=== PATIENT | female | born 1945 | race Caucasian/White ===

== ENCOUNTER 2025-07-06 22:14 | Inpatient (IN) | payer MEDICARE, OTHER, SELFPAY ==
[2025-07-06 19:41] VITALS: BP 167/93; BMI 24.1
[2025-07-06] MEDS: MORPHINE SULFATE 4 MG IV (19:57)
--- NOTE | 2025-07-06 20:00 | EDRN ---
Patient was placed on bed carroll to urinate, was able to tolerate with minimal pain.
--- NOTE | 2025-07-06 20:07 | ED.MUSCINJ ---
HPI-Injury
General
Chief Complaint: Fall
Source: patient and ambulance crew
Exam Limitations: none
Time Seen by Provider: 07/06/25 19:40
Nursing documentation reviewed up to this point in time: agreed with
History of Present Illness-Injury
Is this injury a work related problem?: No
Is pt an associate of [facility]?: No
Initial Injury comments:
80-year-old female slip and fall injuring her right hip and right upper thigh, occurred just prior to arrival came by EMS no blood thinners no head strike no neck pain she was walking slipped into a chair fell onto her right hip
Previously had her right knee replaced by Dr. Wang at the outpatient center
Past History
Past History
ED Past Surgical History: Orthopedic
Social History
Tobacco: Non-smoker
Alcohol: None
Drug: None
Personal:
Living: with family
Employment: Retired
Review of Systems
Review of Systems
All Other Systems: Not applicable
Constitutional: Denies fever or fatigue
Respiratory: Reports no symptoms
Cardiac: Reports no symptoms
ABD/GI: Reports no symptoms
Musculoskeletal: Reports joint pain; Denies neck pain or back pain
Phy Exam
Physical Exam
Physical Exam:
Physical Exam
General: no apparent distress, not acutely ill
Neck: No overt signs of head or neck trauma no posterior neck
Heart: s1/s2 regular rate and rhythm, no murmur. equal radial pulses.
Lungs: no acute respiratory distress. clear bilaterally
Abdomen: Nontender
Neuro: alert and oriented. no focal neurological deficits
Skin: no rash
Psychiatric: well kept. interactive and cooperative
Extremities:
Injury Course
Orders/Labs/Results
Orders:
Orders
07/06/25 19:50
CR Pelvis - 1 Or 2 Views Urgent
Reason For Exam: fall
Femur, Right 2 View [CR Femur - Right Min 2 Vw] Urgent
Comment:
Reason For Exam: fall
07/06/25 19:54
Morphine Sulfate 4 mg IV NOW STA
07/06/25 20:46
Electrocardiogram (*1) Urgent
Reason for Study: Other
Other Reason for Exam: trauma
Cardiac Monitoring- Treatment ONCE
EKG- Treatment ONCE
07/06/25 20:47
ORTHOPEDIC CONSULT Routine
Consulting Provider: Logan Mukherjee
Was physician already notified: Yes
07/06/25 20:48
Lower Ext Right wo Contrast CT [CT Lower Ext W/o Iv Cont Rt] Urgent
Comment:
Reason For Exam: hip pain, ortho request
07/06/25 21:16
Complete Blood Count/With Diff Urgent
Comprehensive Metabolic Panel Urgent
MDM/Problems Addressed
Differential Diagnosis Includes:
Hip fracture pelvic fracture femur fracture contusion strain
MDM/Problems Addressed:
Hip pain
*Radiology
Radiology exam reviewed: preliminary read by ED provider
*Pulse Oximetry
SaO2: 96
Oxygen Mode of Delivery: Room air
Patient hypoxic: no
*EKG
Interpreted by ED Provider?: Yes
Interpretation: normal
Comparison EKG: no comparison EKG present
Heart Rate: 78
Rate: normal
Rhythm: sinus
Ischemia: no ischemia
*Chain Puller Interpretation
Rate: Chain Puller- N/A
*Critical Care Note
Total Time (30-74mins, 75-104mins- exclusive of procedures): Not Applicable
Update Note
Update Note:
Update x-ray noted reviewed with orthopedics and radiology impacted femoral neck fracture which fits clinically, patient updated orthopedics requested CT scan to help with surgical planning,
ED Attending Note
-
Portions of this chart may have been created with voice recognition software.� Occasional wrong word or��sound alike� substitutions may have occurred due to the inherent limitations of voice recognition software.
Discharge Plan
Departure
Prescriptions:
No Action
Unobtainable
0
Referrals:
UNKNOWN - PT DOES,NOT KNOW [Family Provider]
Interventions
Interventions:
*Risk Screen - Suicide Last Done: 07/06/25 19:41
*General Assessment Last Done: 07/06/25 19:41
*Neglect/Abuse Screening Last Done: 07/06/25 19:41
*ED COVID-19 Vaccine History Last Done: 07/06/25 19:41
ED-Musculoskeletal Assessment Last Done: 07/06/25 20:24
ED- Neurological Assessment Last Done: 07/06/25 20:24
ED-Skin Assessment Last Done: 07/06/25 20:24
Discharge Date and Time
Print Language: SOUTH SUDANESE
[2025-07-06 21:00] VITALS: BP 153/78
[2025-07-06 21:27] LABS: Hematocrit 39.7 % (37.0-47.0); Hemoglobin 14.3 g/dL (12.0-16.0); Mean Corp Hgb Conc. 36.0 g/dL (33.0-37.0); Mean Corpuscular Volume 89.6 fL (81.0-99.0); Nucleated Red Blood Cells % 0 %; Platelet Count 255 10^3/uL (130-400); Red Cell Dist. Width 12.8 % (11.5-14.5)
--- NOTE | 2025-07-06 21:50 | HPS.HSE ---
Family Physician
-
Family Physician: NOT KNOW UNKNOWN - PT DOES
Chief Complaint
-
Fall
History of Present Illness
This is a 80-year-old female with past medical history significant for hypertension, hyperlipidemia, prior right total knee arthroplasty who presents to the emergency department following a mechanical fall at home.
Patient was visiting son and just finished dinner. She was cleaning the table when footwear got stuck underneath 1 of which she has. She tried to move she tripped and fell landing on her right side. There was no loss of consciousness. She had
immediate pain and difficulty with ambulation after the fall. She denies any numbness or tingling. She denies any focal weaknesses otherwise.
On arrival in the emergency department she was afebrile, blood pressure was 167/90 with a pulse rate of 99 and she was satting 95% on room air.
ECG shows sinus tachycardia at a rate of 103 with a left anterior fascicular block. No priors for comparison. CBC was completely unremarkable. Electrolytes notable for a sodium of 129 otherwise unremarkable. BUN and creatinine were normal.
X-rays and CT scan shows a fracture through the neck of the right femoral with slight impaction but no significant displacement on CT scan. No hip joint dislocation. The bony pelvis is intact. The x-rays revealed normal right total knee
arthroplasty.
Medical History
Past Medical History
Past Medical History: Reports HTN and Hypercholesterolemia
Past Surgical History: Reports Orthopedic (Right total knee arthroplasty) and Other
Social History
Tobacco: Non-smoker
Alcohol: None
Drug: None
Family History
Family History: Not pertinent
Allergies / Home Medications
Allergies reflects when Allergies were last updated in [employer].
Home Medications with original date entered in [employer]
Allergy/Medication List:
Allergies
Allergy/AdvReac Type Severity Reaction Status Date / Time
azithromycin Allergy Mild Vomiting Verified 07/06/25 19:49
Home Medications
amlodipine 2.5 mg tablet 2.5 mg PO DAILY 07/06/25
simvastatin 20 mg tablet 20 mg PO HS 07/06/25
valsartan 160 mg-hydrochlorothiazide 25 mg tablet 1 tab PO DAILY 07/06/25
Review of Systems
-
Constitutional: Reports No Symptoms
EENT: Reports No Symptoms
Respiratory: Reports No Symptoms
Cardiac: Reports No Symptoms
Abdomen/GI: Reports No Symptoms
: Reports No Symptoms
Musculoskeletal: Reports Joint Pain
Skin: Reports No Symptoms
Neurological: Reports No Symptoms
Endocrine: Reports No Symptoms
Hematologic/Lymphatic: Reports No Symptoms
Psych: Reports No Symptoms
Physical Exam
Vital Signs
Vital Signs
Temp Pulse Resp BP Pulse Ox
98.0 F 99 16 167/93 93
07/06/25 19:41 07/06/25 19:41 07/06/25 19:41 07/06/25 19:41 07/06/25 20:15
Physical Exam
General: Well Developed, Well Nourished and No Apparent Distress
HEENT: NormoCephalic, Moist mucous membranes and Atraumatic
Respiratory: Clear
Cardiac: S1/S2 and Regular Rhythm; No Murmur or Rub
GI: Soft, Non Tender, Non Distended and Normal Bowel Sounds; No Organomegaly
Rectal: Deferred by Provider
Musculoskeletal: No Clubbing, No Cyanosis and No Edema
Skin: No Rash
Neuro: Nonfocal/grossly intact
Hematologic/Lymphatic: No Lymphadenopathy
Psych: Calm
Laboratory Results
-
07/06/25 21:16
07/06/25 21:16
Laboratory Results
Total Bilirubin 0.6 mg/dl (0.2-1.3) 07/06/25 21:16
AST 35 U/L (14-36) 07/06/25 21:16
ALT 32 U/L (0-35) 07/06/25 21:16
Alkaline Phosphatase 101 U/L (38-126) 07/06/25 21:16
07/06/25 21:16
Data Reviewed
-
Diagnostic Radiology: Report Reviewed by me
CT Scan: Report Reviewed by me
Medical Tests (Nuc Med, Echo, EKG etc): Image Personally Visualized and interpreted
Lab Data: Labs Reviewed by me
Old Records: Reviewed
Impression/Plan
-
IMPRESSION:
80-year-old with history of hypertension, hyperlipidemia presenting with a mechanical fall and found to have right femoral neck nondisplaced fracture with slight impaction. Incidental finding of a sodium of 129. It looks like this may be chronic
as a prior sodium from over 10 years ago was 131. No recent evidence of GI or urinalysis or signs of dehydration. Patient is on a thiazide diuretic for blood pressure control.
PLAN:
Fracture
- Admit to MedSurg
- N.p.o. after midnight
- Gentle hydration with D5 normal saline for now
- Pain control
- No thinners, DVT prophylaxis with SCDs, Constantinos after procedure
- Fracture order sets with monitoring for urinary retention
- PT OT consult
- Orthopedics consulted and aware
Hyponatremia -suspect this is chronic and possibly SIADH but also patient is on hydrochlorothiazide.
- Hold HCTZ for now, continue valsartan
Hypertension
- Continue losartan and amlodipine, continue simvastatin
DVT prophylaxis�SCDs for now
CODE STATUS�full code
[2025-07-06 21:52] LABS: ALT (SGPT) 32 U/L (0-35); AST (SGOT) 35 U/L (14-36); Albumin 4.6 g/dl (3.5-5.0); Alkaline Phosphatase 101 U/L (38-126); Blood Urea Nitrogen 16 mg/dl (7-17); Calcium 10.5 mg/dl (8.4-10.2); Carbon Dioxide 21 mmol/L (22-30); Chloride 97 mmol/L (98-107); Estimated Creatinine Clearance 64 ml/min; Glucose 118 mg/dl (70-99); Potassium 3.7 mmol/L (3.5-5.1); Sodium 129 mmol/L (135-145); Total Protein 7.2 g/dl (6.3-8.2); eGFR > 60.00
[2025-07-06 22:27] VITALS: BP 157/85
--- NOTE | 2025-07-06 22:30 | EDRN ---
Patient placed on bed carroll to urinate and pulled up in bed.
[2025-07-06 23:07] VITALS: BP 144/77
[2025-07-06] MEDS: D5/0.9% SODIUM CHLORIDE 1000 IV (23:17)
[2025-07-06] MEDS: TYLENOL 650 MG PO (23:28)
[2025-07-06] MEDS: SENOKOT 17.2 MG PO (23:29)
[2025-07-06] MEDS: ROXICODONE 5 MG PO (23:30)
[2025-07-06] MEDS: COLACE 100 MG PO (23:31)
[2025-07-06] MEDS: MORPHINE SULFATE 2 MG IV (23:31)
[2025-07-06 23:35] VITALS: BMI 23.3
[2025-07-07] VITALS (12 sets, daily range): BP systolic 125–171; BP diastolic 77–88
[2025-07-07] MEDS: TYLENOL PO ×2 (03:33→18:28)
[2025-07-07] MEDS: MORPHINE SULFATE 2 MG IV ×3 (04:20→14:11)
[2025-07-07 06:30] LABS: Hematocrit 37.0 % (37.0-47.0); Hemoglobin 13.0 g/dL (12.0-16.0); Mean Corp Hgb Conc. 35.1 g/dL (33.0-37.0); Mean Corpuscular Volume 89.4 fL (81.0-99.0); Platelet Count 230 10^3/uL (130-400); Red Cell Dist. Width 12.9 % (11.5-14.5)
[2025-07-07 06:41] LABS: INR 1.06; PT 14.1 Sec (11.4-14.6)
[2025-07-07 06:49] LABS: Blood Urea Nitrogen 16 mg/dl (7-17); Calcium 9.7 mg/dl (8.4-10.2); Carbon Dioxide 27 mmol/L (22-30); Chloride 93 mmol/L (98-107); Estimated Creatinine Clearance 64 ml/min; Glucose 143 mg/dl (70-99); Potassium 3.7 mmol/L (3.5-5.1); Sodium 127 mmol/L (135-145); eGFR > 60.00
--- NOTE | 2025-07-07 07:52 | W.PN.HOSP.TC ---
Today's Communication/Plan
-
NPO for ORIF as per Orthopedic
Low risk for complication surgical intervention, risk is not prohibitive
Blood pressure Control
Pain control
Assessment / Plan
Assessment / Plan
Physical Exam
General: No acute distress, appears relatively comfortable at this time
HEENT: NormoCephalic, Moist mucous membranes and Atraumatic
Respiratory: Clear
Cardiac: S1/S2 and Regular Rhythm; No Murmur or Rub
GI: Soft, Non Tender, Non Distended and Normal Bowel Sounds; No Organomegaly
Musculoskeletal: No Clubbing, No Cyanosis, RLE thigh swelling, R foot externally rotated, b/l LE lengths appear symmetrical
Neuro: AOx3 conversant coherent
Psych: Calm
80F HTN, HLD here following mechanical fall found to have right femoral neck nondisplaced fracture with slight impaction. Patient also hyponatremic with thiazide diuretic for blood pressure control. Reports being told she has low sodium before, a
year ago, was told to drink less water.
PLAN:
Fracture
- Orthopedic eval appreciated N.p.o. for ORIF today
- revised cardiac pre-op risk assessment notes relatively low risk of complications, risk not prohibitive.
- Gentle hydration with D5/normal saline for now
- Pain control
- No thinners, DVT prophylaxis with SCDs for now pending operation
- Fracture order sets with monitoring for urinary retention
- PT OT consult
Hyponatremia -suspect this is chronic and possibly SIADH but also patient is on hydrochlorothiazide.
- Hold HCTZ for now, continue valsartan
Hypertension
- Continue losartan and amlodipine, continue simvastatin
- Hydralazine prn SBP>160 or DBP >100
-monitor on Tele
DVT prophylaxis�SCDs for now
CODE STATUS�full code
Discussed with patient who reported comfortable updating her son on her own.
I spent a total of 40 minutes with the patient or on the floor. More than 50% of this time involved counseling and coordination of care.
Anticipated Discharge: 24 - 48 hours
Subjective/Interval History
-
Date of Service: July 07, 2025
Seen and examined at bedside in no acute distress resting comfortably in bed. Reports persistent right hip lower ext pain.
Objective Data
-
Labs:
Laboratory Results
07/06/25 07/07/25
21:16 05:52
WBC 6.0 8.2
Hgb 14.3 13.0
Hct 39.7 37.0
Plt Count 255 230
PT 14.1
INR 1.06
Sodium 129 L 127 L
Potassium 3.7 3.7
Chloride 97 L 93 L
Carbon Dioxide 21 L 27
BUN 16 16
Creatinine 0.6 0.4 L
Glucose 118 H 143 H
Calcium 10.5 H 9.7
Total Bilirubin 0.6
AST 35
ALT 32
Alkaline Phosphatase 101
Vital Signs:
Vital Signs
Temp Pulse Resp BP Pulse Ox
98.5 F 85 16 149/82 97
07/07/25 07:30 07/07/25 07:30 07/07/25 07:30 07/07/25 07:30 07/07/25 07:30
I&O
07/06/25 07/07/25 07/08/25
06:59 06:59 06:59
Intake Total 840 / 840 480 / 480
Output Total 400 / 400
Balance 840 / 840 80 / 80
--- NOTE | 2025-07-07 08:25 | CON.ORTHO ---
Consultation
-
Date/Time Consultation Requested: Jul 17/2047
Date/Time Consultation Performed: Jul 17/0755
Requesting Provider: Vincent
Performing Provider: Pinky Mukherjee
Reason for Consultation: Right hip fracture
Consultation - Orthopedics
History
History of Present Illness:
80-year-old female with a PMH of HTN and Hyperlipds presenting to the emergency department after a trip and fall at her son's house yesterday. reportedly landed directly on her right hip and was unable to get to her feet to ambulate. She was
transported via EMS where plain radiographs confirmed a right hip fracture. Denies a head strike or LOC. Does not take blood thinners. denies any previous issues or injuries to the right hip prior to the fall. Known to our orthopedic practice for
a right knee replacement by Dr. Garcia in the past.
Past Medical History:
HTN
Hyperlipids
Past Surgical History:
Right TKA (Jose)
Social History:
Tobacco: Non-smoker
Alcohol: None
Drug: None
Personal:
Living: with family
Employment: Retired
Family History:
Non-contributory
ROS:
12 point negative except for those mentioned in the HPI
Allergies / Home Medications
Allergy/AdvReac Type Severity Reaction Status Date / Time
azithromycin Allergy Mild Vomiting Verified 07/06/25 19:49
�Medication �Instructions �Recorded
Vitamin D3 2,000 cap PO BID Supplement 07/06/25
amlodipine 2.5 mg tablet 2.5 mg PO DAILY Blood Pressure 07/06/25
simvastatin 20 mg tablet 20 mg PO HS High Cholesterol 07/06/25
valsartan 160 1 tab PO DAILY Blood Pressure 07/06/25
mg-hydrochlorothiazide 25 mg tablet
Vital Signs / Lab Results
Temp Pulse Resp BP Pulse Ox
98.5 F 85 16 149/82 97
07/07/25 07:30 07/07/25 07:30 07/07/25 07:30 07/07/25 07:30 07/07/25 07:30
07/07/25 05:52
07/07/25 05:52
Assessment / Plan
PE:
Afeb.Hgb 13.0. At bedrest. Right hip skin intact. RLE slightly short and ER. Generalized pain to palpation about the right hip. Deferred range of motion due to known fracture. + logroll RLE. Knee nontender. Calf soft nontender. DNVI RLE
Xrays: Nondisplaced, slightly impacted, RIGHT femoral neck fracture
Impression: DENIZ
Plan: At length bedside discussion with the patient yields her understanding to the nature of her right hip fracture. All nonoperative and operative management were discussed, including the RBAs of each form of treatment. After our discussion she
agreed to proceed with surgical correction. We discussed cannulated screw fixation versus hemiarthroplasty. We discussed her limits with weightbearing after a cannulated screw fixation, which she did not, preliminarily, appear interested in. We
have tentatively planned for lunchtime-mid afternoon, based on the OR and Drs. Mukherjee or Torsten' availability. Surgical and blood consent has been obtained and placed in the patient's chart. She is and will remain NPO. Discussed with attending
hospitalist, Dr. Chavze. T&S has been requested. Operative site has been marked as the RIGHT hip. we discussed the postoperative and rehab course, and will appreciate CM assistance with disposition. ABX/irrigation products OCTOR. Again, the plan is
later today for surgical correction of her RIGHT hip. Will follow.
[2025-07-07] MEDS: DIOVAN 160 MG PO (09:09)
[2025-07-07] MEDS: SENOKOT 17.2 MG PO ×2 (09:10→19:28)
[2025-07-07] MEDS: NORVASC 2.5 MG PO (09:10)
[2025-07-07] MEDS: COLACE 100 MG PO ×2 (09:10→19:28)
[2025-07-07] MEDS: TYLENOL 650 MG PO ×3 (09:10→19:28)
--- NOTE | 2025-07-07 10:03 | CM ---
Reviewed the chart notes and spoke with the patient at the bedside. Patient scheduled for surgery today to repair hip fx. Patient resides alone in a one story home with two steps to enter. The patient reports no DME/VN/SNF in the past. The
patient confirmed her pharmacy of choice [facility]. CM continues to be available to patient/family and is monitoring medical plan for needs at discharge.
Plan: Discharge plans will depend on the patient's progress. Briefly discussed possible need for SNF/rehab at discharge.
[2025-07-07] MEDS: MORPHINE SULFATE 1 MG IV (10:58)
[2025-07-07] MEDS: D5/0.9% SODIUM CHLORIDE 1000 IV (12:08)
--- NOTE | 2025-07-07 17:32 | W.IMMPOSTOP ---
Surgical Immed Post Op Note
-
Primary Surgeon: Yaz
Shuttle Spotter: Rojelio Buhcanan PA-C
Pre-op Diagnosis: Right hip femoral neck fracture
Post-op Diagnosis: Same
Procedure Performed: Right hip hemiarthroplasty
Anesthesia Type: Spinal
Specimen / Cultures: None
Estimated Blood Loss: 20cc
Complications: None
Operative Findings: Dictated
Plan:
- WBAT
- PT/ OT
- If there are not currently on blood thinners, ASA 325 for 30 days
[2025-07-07] MEDS: ROXICODONE 5 MG PO ×2 (18:15→20:51)
[2025-07-07] MEDS: NSS 1000 IV (18:47)
[2025-07-07] MEDS: ASPIRIN 325 MG PO (18:47)
--- NOTE | 2025-07-07 19:21 | PTCARENOTE ---
Addendum entered by Marianela Couch RN 07/07/25 19:31:
Pt tachy on monitor. Pt does not report any palpitations. Pt does report feeling anxious. Dr. Chavez notified. PRN xanax ordered. Care ongoing.
Original Note:
Pt arrived to [facility] s/p right hip bernadine. Right hip dressing with small sanguineous drainage. Abductor pillow between pt's legs. Pt with mild loss of sensation in legs. IVF infusing. Bed locked and in lowest position. Care ongoing.
[2025-07-07] MEDS: LIPITOR 10 MG PO (22:27)
[2025-07-07] MEDS: BACTROBAN 2% OINTMENT 1 APPLIC NASAL (22:28)
[2025-07-08] VITALS (8 sets, daily range): BP systolic 111–150; BP diastolic 59–91; PULSE 100–104; O2SAT 91
[2025-07-08] MEDS: ANCEF 5 IV ×2 (00:08→08:14)
[2025-07-08] MEDS: TYLENOL PO ×2 (00:09→03:51)
--- NOTE | 2025-07-08 06:34 | PTCARENOTE ---
Pt reporting during rounds @ 0600 that she can't bend her ankle. RN assessed pt and noted right ankle is in plantarflexion and unable to perform dorsiflexion. Pt neurovascular throughout shift have been WNL reporting mild tingling continues in her
RLE since returning from surgery. Pt able to bend her knee and push her foot as to push on a pedal. call circuit worker ortho notified and asked to order a PRAFO boot until ortho rounds this morning. SPD callled and boot ordered. STRAW HAT PRESSER notified of above findings.
[2025-07-08 06:43] LABS: Blood Urea Nitrogen 12 mg/dl (7-17); Calcium 9.3 mg/dl (8.4-10.2); Carbon Dioxide 25 mmol/L (22-30); Chloride 101 mmol/L (98-107); Estimated Creatinine Clearance 64 ml/min; Glucose 135 mg/dl (70-99); Magnesium 1.9 mg/dl (1.6-2.3); Potassium 3.9 mmol/L (3.5-5.1); Sodium 130 mmol/L (135-145); eGFR > 60.00
[2025-07-08 06:44] LABS: Hematocrit 32.9 % (37.0-47.0); Hemoglobin 11.6 g/dL (12.0-16.0); Mean Corp Hgb Conc. 35.3 g/dL (33.0-37.0); Mean Corpuscular Volume 88.2 fL (81.0-99.0); Platelet Count 179 10^3/uL (130-400); Red Cell Dist. Width 12.9 % (11.5-14.5)
[2025-07-08] MEDS: TYLENOL 650 MG PO ×5 (08:14→23:26)
[2025-07-08] MEDS: COLACE 100 MG PO ×2 (08:14→20:28)
[2025-07-08] MEDS: ASPIRIN 325 MG PO (08:14)
[2025-07-08] MEDS: SENOKOT 17.2 MG PO ×2 (08:14→20:28)
[2025-07-08] MEDS: BACTROBAN 2% OINTMENT 1 APPLIC NASAL ×2 (08:15→20:27)
--- NOTE | 2025-07-08 08:17 | W.PN.ORTHO ---
Today's Communication / Plan
-
80 yo F POD1 right hip hemiarthroplasty for femoral neck fracture under the direction of Dr. Mukherjee
--Unfortunately, patient has developed a foot drop post-operatively. We will keep an eye on this in the days to come. An orthosis has been ordered.
--Once patient has orthosis, she may be weight bearing as tolerated with assistive device. THPs x6-8 weeks. We appreciate the assistance of PT/OT.
--Recommend ASA 325 mg daily x4 weeks for DVT ppx.
--Pain control prn. Ice and elevation for edema control.
--Hgb 11.6 this AM. Continue to monitor.
--Maintain surgical dressing until 7-10 days post-op. Staple removal at 2 weeks post-op.
--Case management consult for discharge planing.
--Orthopedics will continue to follow along.
Assessment
.
Dressing:
Clean, dry and intact.
Plan
.
Surgery / Date: R hip bernadine, 07/07, [facility]
DVT Prophylaxis: Aspirin
Activity:
Out of bed.
PT/OT
Subjective
.
.:
Ms. Esparza is POD1 following her right hip hemiarthroplasty performed by Dr. Mukherjee. She is resting comfortably in bed this morning. She does endorse aching pain about the hip. Unfortunately, she also appears to have developed a foot drop following
surgery. She endorses tingling in her foot, and difficulty dorsiflexing her foot.
Vital Signs and Labs
.
Vital Signs and Labs:
Lab Results
07/08/25 06:01
07/08/25 06:01
Temp Pulse Resp BP Pulse Ox
97.9 F 91 18 112/77 95
07/08/25 03:05 07/08/25 03:05 07/08/25 03:05 07/08/25 03:05 07/08/25 03:05
PT 14.1 Sec (11.4-14.6) 07/07/25 05:52
INR 1.06 07/07/25 05:52
Non-invasive Hgb result: 12.3
Physical Exam
-
Directed exam of the right lower extremity reveals surgical dressing clean, dry and intact. Expected post-operative edema about the right hip. Mild tenderness to palpation. Hip adn thigh soft and compressible. Calf soft and nontender. Patient able
to wiggle toes, but unable to actively dorsiflex ankle. Sensation intact to light touch apart from L5 over the dorsum of the foot.
--- NOTE | 2025-07-08 08:54 | PN.CDI ---
CDI
- -
CDI:
Physician Documentation Request
Admit Date: 07/06/25 22:14
Dear Doctor Scott,
Please review the following and provide your response in the progress notes.
Clinical Indicators:
Laboratory Tests
07/06/25 07/07/25 07/08/25
21:16 05:52 06:01
Hgb 14.3 13.0 11.6 L
Based on the above and your clinical assessment, please clarify the likely condition/diagnosis evaluated, monitored and/or treated?
Acute blood loss anemia
Abnormal lab value, clinically insignificant
Other (please specify)
Use of terms such as suspected, likely, concern for, or probable (associated with a specific diagnosis that is being evaluated, monitored, or treated as if it exists) are acceptable and can be coded in the inpatient setting, when documented at the
time of discharge.
Thank you,
Varsha Pat RN BSN CDS
CDI Specialist
Please contact via tiger text
Please use your independent medical judgment in providing your response.
--- NOTE | 2025-07-08 08:58 | PN.CDI ---
CDI
- -
CDI:
Physician Documentation Request
Admit Date: 07/06/25 22:14
Dear Doctor Scott,
Please review the following and provide your response in the progress notes.
Clinical Indicators:
H+P, 07/06
#...cleaning the table when footwear got stuck underneath 1 of which she has.
#...She tried to move she tripped and fell landing on her right side.
PN, 07/07
#...mechanical fall found to have right femoral neck nondisplaced fracture
#...with slight impaction.
Please clarify the following regarding the etiology of the right femoral neck fracture:
Multifactorial, low level trauma and age related osteoporosis
Traumatic fracture only
Other(please specify)
Type
Age-related
Drug induced (specify drug)
Idiopathic
Osteoporosis of disuse
Due to post surgical malabsorption
Post traumatic
Use of terms such as suspected, likely, concern for, or probable (associated with a specific diagnosis that is being evaluated, monitored, or treated as if it exists) are acceptable and can be coded in the inpatient setting, when documented at the
time of discharge.
Thank you,
Varsha Pat RN BSN CCDS
CDI Specialist
Please contact via tiger text
Please use your independent medical judgment in providing your response.
[2025-07-08] MEDS: DIOVAN 160 MG PO (09:01)
[2025-07-08] MEDS: NORVASC 2.5 MG PO (09:01)
[2025-07-08] MEDS: ROXICODONE 5 MG PO ×3 (09:04→19:06)
--- NOTE | 2025-07-08 11:07 | W.PN.HOSP.TC ---
Addendum entered and electronically signed by Rosa Isela Chavez MD 07/09/25 07:47:
Fracture probably multifactorial d/t trauma and age related osteoporosis
Original Note:
Today's Communication/Plan
-
pain control
PT/OT
Post-op care as per orthopedic
Monitor H&H
discharge planning
Assessment / Plan
Assessment / Plan
Physical Exam
General: No acute distress, appears relatively comfortable at this time
HEENT: NormoCephalic, Moist mucous membranes and Atraumatic
Respiratory: Clear
Cardiac: S1/S2 and Regular Rhythm; No Murmur or Rub
GI: Soft, Non Tender, Non Distended and Normal Bowel Sounds; No Organomegaly
Musculoskeletal: No Clubbing, No Cyanosis, Right foot orthosis in place
Neuro: AOx3 conversant coherent
Psych: Calm
80F HTN, HLD here following mechanical fall found to have right femoral neck nondisplaced fracture with slight impaction. Patient also hyponatremic with thiazide diuretic for blood pressure control. Reports being told she has low sodium before, a
year ago, was told to drink less water.
PLAN:
Right Femur Fracture
- Orthopedic eval appreciated right hip hemiarthroplasty performed 07/07/25 unfortunately developed subsequent right foot drop
- Pain control
- WBAT w/ orthosis right foot and assist device
-THPs x 6-8wks
- ASA 325 mg daily DVT ppx 4 wks
- surgical dressing 7-10 days post-op, staple removal 2 wks post op
- PT OT consult appreciated Acute vs SNF
Hyponatremia -suspect this is chronic and possibly SIADH but also patient is on hydrochlorothiazide.
- Hold HCTZ for now, continue valsartan
-Na since improved
-cont to monitor
Hypertension
- Continue losartan and amlodipine, continue simvastatin
- Hydralazine prn SBP>160 or DBP >100
-monitor on Tele
Post-op mild acute blood loss anemia
-Hgb trended down from 13.6 to 11.6 post-procedure
-cont to monitor for now
Sinus tachycardia
-possibly d/t pain vs anxiety
-denies chest pain
-monitor for now on Tele
DVT prophylaxis�SCDs Aspirin
CODE STATUS�full code
I spent a total of 40 minutes with the patient or on the floor. More than 50% of this time involved counseling and coordination of care.
Anticipated Discharge: 24 - 48 hours
Subjective/Interval History
-
Date of Service: July 08, 2025
No acute distress, appears comfortable at this time. Notes right foot drop, orthosis in place, able to wriggle toes. Pain controlled with current pain regimen.
Objective Data
-
Labs:
Laboratory Results
07/08/25
06:01
WBC 8.1
Hgb 11.6 L
Hct 32.9 L
Plt Count 179 D
Sodium 130 L
Potassium 3.9
Chloride 101
Carbon Dioxide 25
BUN 12
Creatinine 0.5 L
Glucose 135 H
Calcium 9.3
Vital Signs:
Vital Signs
Temp Pulse Resp BP Pulse Ox
98.7 F 108 18 150/91 99
07/08/25 08:00 07/08/25 09:01 07/08/25 08:00 07/08/25 09:01 07/08/25 08:00
I&O
07/07/25 07/08/25 07/09/25
06:59 06:59 06:59
Intake Total 840 / 840 1940 / 1940
Output Total 400 / 400
Balance 840 / 840 1540 / 1540
--- NOTE | 2025-07-08 11:37 | CM ---
Addendum entered by Ana Zaman RN 07/08/25 15:46:
Referrals sent via [facility].
Original Note:
Reviewed the chart notes and spoke with the patient at the bedside. Patient is POD1 right hip hemiarthroplasty for femoral neck fracture. PT/OT evaluations pending. Patient understands will most likely need SNF/rehab prior to transitioning home.
Referrals will be sent to patient's selected SNFs once PT/OT has seen. No precert required. CM continues to be available to patient/family and is monitoring medical plan for needs at discharge.
Plan: SNF/rehab once medically stable and bed secured. No precert required.
--- NOTE | 2025-07-08 12:24 | PTCARENOTE ---
Jonna juarez ordered for Right foot drop. Jonna unable to come today but will be here tomorrow. DOM Rodriguez, notified. Multipodus boot on pt until jonna juarez is here. Care ongoing.
[2025-07-08] MEDS: MILK OF MAGNESIA 30 ML PO (19:10)
[2025-07-08] MEDS: LIPITOR 10 MG PO (21:27)
[2025-07-09] VITALS (7 sets, daily range): BP systolic 107–130; BP diastolic 62–84; PULSE 93–101; O2SAT 95
--- NOTE | 2025-07-09 02:17 | DOWNTIME ---
There was a [employer] Downtime on 07/09/2025 from 0100 to 07/09/2025 at 0215. Downtime documentation of patient's care, including medication administrations, has been reconciled in the electronic record per guidelines. Refer to the
patient's paper chart under the miscellaneous tab to see printed paper medication records and downtime forms.
[2025-07-09] MEDS: TYLENOL 650 MG PO ×6 (03:52→23:17)
--- NOTE | 2025-07-09 07:22 | W.PN.UPDATE ---
Update Note
Progress Note Update
Ms. Esparza is POD2 following her right hip hemiarthroplasty. She is resting comfortably in bed this morning. She endorses increased pain after PT yesterday, but reports she is otherwise doing well overall. She was able to ambulate in her
multi-podus boot yesterday. Thankfully, it sounds as though her foot drop has resolved since I saw her on rounds yesterday.
Directed exam of the right lower extremity reveals surgical dressing clean, dry and intact. Expected post-operative edema about the right hip. Mild tenderness to palpation. Hip and thigh soft and compressible. Calf soft and nontender. Patient able
to wiggle toes, plantar and dorsiflex ankle. Sensation intact to light touch. NVID.
80 yo F POD2 right hip hemiarthroplasty for femoral neck fracture under the direction of Dr. Mukherjee
--It appears as though Rajwinder's foot drop has resolved since I saw her on rounds yesterday. She currently has the multi podus boot in place, but could trial ambulating without this under the direction of PT.
--Weight bearing as tolerated with assistive device. THPs x6-8 weeks. We appreciate the assistance of PT/OT.
--Recommend ASA 325 mg daily x4 weeks for DVT ppx.
--Pain control prn. Ice and elevation for edema control.
--Hgb pending this AM. Continue to monitor.
--Maintain surgical dressing until 7-10 days post-op. Staple removal at 2 weeks post-op.
--Case management consult for discharge planing.
--- NOTE | 2025-07-09 07:27 | W.PN.HOSP.TC ---
Today's Communication/Plan
-
cont pain control
PT/OT
trend H&H
B12 supplementation
possible discharge SNF rehab tomorrow if remains stable
Assessment / Plan
Assessment / Plan
Physical Exam
General: No acute distress, appears relatively comfortable at this time
HEENT: NormoCephalic, Moist mucous membranes and Atraumatic
Respiratory: Clear
Cardiac: S1/S2 and Regular Rhythm; No Murmur or Rub
GI: Soft, Non Tender, Non Distended and Normal Bowel Sounds; No Organomegaly
Musculoskeletal: No Clubbing, No Cyanosis, Right foot orthosis in place
Neuro: AOx3 conversant coherent
Psych: Calm
80F HTN, HLD here following mechanical fall found to have right femoral neck nondisplaced fracture with slight impaction. Patient also hyponatremic with thiazide diuretic for blood pressure control. Reports being told she has low sodium before, a
year ago, was told to drink less water.
PLAN:
Right Femur Fracture
Fracture probably multifactorial d/t trauma and age related osteoporosis
- Orthopedic eval appreciated right hip hemiarthroplasty performed 07/07/25 unfortunately developed subsequent right foot drop
- Pain control
- WBAT w/ orthosis right foot and assist device
-THPs x 6-8wks
- ASA 325 mg daily DVT ppx 4 wks
- surgical dressing 7-10 days post-op, staple removal 2 wks post op
- PT OT consult appreciated Acute vs SNF
-Right rib x-rays appreciated no fracture
Hyponatremia -suspect this is chronic and possibly SIADH but also patient is on hydrochlorothiazide.
- Hold HCTZ for now, continue valsartan
-Na since improved
-cont to monitor
Hypertension
- Continue losartan and amlodipine, continue simvastatin
- Hydralazine prn SBP>160 or DBP >100
-monitor on Tele
Post-op mild acute blood loss anemia
Anemia of Chronic Disease
Low normal B12 level
-Hgb trended down from 13.6 to 11.6 post-procedure
-cont to monitor for now
-B12 supplementation
-Iron supplementation not indicated, high ferritin level
Sinus tachycardia
-possibly d/t pain vs anxiety
-denies chest pain
-monitor for now on Tele
DVT prophylaxis�SCDs Aspirin
CODE STATUS�full code
I spent a total of 40 minutes with the patient or on the floor. More than 50% of this time involved counseling and coordination of care.
Anticipated Discharge: Within 24 hours
Subjective/Interval History
-
Date of Service: July 09, 2025
No acute distress, sitting up comfortably in bed, notes right foot drop resolved.
Objective Data
-
Labs:
Laboratory Results
07/09/25
06:59
WBC Pending
Hgb Pending
Hct Pending
Plt Count Pending
Sodium Pending
Potassium Pending
Chloride Pending
Carbon Dioxide Pending
BUN Pending
Creatinine Pending
Glucose Pending
Calcium Pending
Vital Signs:
Vital Signs
Temp Pulse Resp BP Pulse Ox
97.4 F 81 16 107/62 98
07/09/25 03:12 07/09/25 03:12 07/09/25 03:12 07/09/25 03:12 07/09/25 03:12
I&O
07/08/25 07/09/25 07/10/25
06:59 06:59 06:59
Intake Total 1939 / 1939 880 / 880
Output Total 400 / 400
Balance 1540 / 1540 880 / 880
[2025-07-09 08:02] LABS: Hematocrit 31.5 % (37.0-47.0); Hemoglobin 10.9 g/dL (12.0-16.0); Mean Corp Hgb Conc. 34.6 g/dL (33.0-37.0); Mean Corpuscular Volume 90.3 fL (81.0-99.0); Platelet Count 157 10^3/uL (130-400); Red Cell Dist. Width 13.4 % (11.5-14.5)
[2025-07-09 08:37] LABS: Blood Urea Nitrogen 19 mg/dl (7-17); Calcium 9.0 mg/dl (8.4-10.2); Carbon Dioxide 31 mmol/L (22-30); Chloride 99 mmol/L (98-107); Estimated Creatinine Clearance 64 ml/min; Glucose 97 mg/dl (70-99); Magnesium 2.2 mg/dl (1.6-2.3); Potassium 3.6 mmol/L (3.5-5.1); Sodium 131 mmol/L (135-145); eGFR > 60.00
[2025-07-09] MEDS: ASPIRIN 325 MG PO (09:17)
[2025-07-09] MEDS: DIOVAN 160 MG PO (09:17)
[2025-07-09] MEDS: NORVASC 2.5 MG PO (09:18)
[2025-07-09] MEDS: SENOKOT 17.2 MG PO ×2 (09:18→20:39)
[2025-07-09] MEDS: COLACE 100 MG PO ×2 (09:18→20:39)
[2025-07-09] MEDS: ROXICODONE 10 MG PO (09:24)
[2025-07-09 10:13] LABS: Total Iron Binding Capacity 238 ug/dl (265-497)
[2025-07-09 10:20] LABS: Iron < 20 ug/dl (37-170)
[2025-07-09 10:39] LABS: Ferritin 208.0 ng/ml (11.1-264.0)
[2025-07-09 10:54] LABS: Vitamin B12 240 pg/ml (239-931)
[2025-07-09] MEDS: VITAMIN B-12 1000 MCG PO (13:37)
[2025-07-09 13:38] LABS: Folate 5.1 ng/ml (2.76-20)
--- NOTE | 2025-07-09 15:10 | CM ---
CM following re: discharge planning.
Reviewed pt's chart, met with pt.
Pt is POD#2 right hip hemiarthroplasty for femoral neck fracture. Continue supportive care.
PT and OT have been recommending SNF level of care
Pt is informed that [facility] SNF and [facility] offered a bed and pt stated her preferred choice is [facility]. Pt stated she feels she will be ready for discharge tomorrow.
CM texted [facility] interior design director regarding accepting the pt for admission tomorrow. Awaiting for confirmation.
D/C plan: [facility]. Awaiting for confirmation.
[2025-07-09] MEDS: ROXICODONE 5 MG PO ×2 (16:06→21:47)
[2025-07-09] MEDS: LIPITOR 10 MG PO (20:39)
[2025-07-10 03:12] VITALS: BP 111/69
[2025-07-10] MEDS: TYLENOL PO (04:14)
[2025-07-10] MEDS: ROXICODONE 5 MG PO (06:43)
--- NOTE | 2025-07-10 07:13 | W.PN.HOSP.TC ---
Today's Communication/Plan
-
discharge
Assessment / Plan
Assessment / Plan
Physical Exam
General: No acute distress, appears relatively comfortable at this time
HEENT: NormoCephalic, Moist mucous membranes and Atraumatic
Respiratory: Clear
Cardiac: S1/S2 and Regular Rhythm; No Murmur or Rub
GI: Soft, Non Tender, Non Distended and Normal Bowel Sounds; No Organomegaly
Musculoskeletal: No Clubbing, No Cyanosis, Right foot orthosis in place
Neuro: AOx3 conversant coherent
Psych: Calm
80F HTN, HLD here following mechanical fall found to have right femoral neck nondisplaced fracture with slight impaction. Patient also hyponatremic with thiazide diuretic for blood pressure control. Reports being told she has low sodium before, a
year ago, was told to drink less water.
PLAN:
Right Femur Fracture
Fracture probably multifactorial d/t trauma and age related osteoporosis
- Orthopedic eval appreciated right hip hemiarthroplasty performed 07/07/25 unfortunately developed subsequent right foot drop, foot drop however since resolved
- Pain control
- WBAT w/ assist device
-THPs x 6-8wks
- ASA 325 mg daily DVT ppx 4 wks
- surgical dressing 7-10 days post-op, staple removal 2 wks post op
- PT OT consult appreciated SNF rehab
-Right rib x-rays appreciated no fracture
Hyponatremia -suspect this is chronic and possibly SIADH but also patient is on hydrochlorothiazide.
- dc HCTZ (BP well controlled without)
-Na since improved
Hypertension
- Continue Valsartan and amlodipine, continue simvastatin
- Hydralazine prn SBP>160 or DBP >100
-monitor on Tele
Post-op mild acute blood loss anemia
Anemia of Chronic Disease
Low normal B12 level
-Hgb trended down from 13.6 to 11.6 post-procedure
-B12 supplementation
-Iron supplementation not indicated, high ferritin level
-H&H stable
Sinus tachycardia
-possibly d/t pain vs anxiety
-denies chest pain
-HR since improved
DVT prophylaxis�SCDs Aspirin
CODE STATUS�full code
Total Time Preparing Discharge __40 minutes including examination of the patient, summary of the hospital stay, instructions for continuing care to all relevant caregivers; and preparation of discharge records, prescriptions, and referral
forms if necessary.
Anticipated Discharge: Today
Subjective/Interval History
-
Date of Service: July 10, 2025
Seen and examined at bedside in no acute distress resting comfortably in bed. Pain well controlled with current pain regimen. Looking forward to rehab.
Objective Data
-
Labs:
Laboratory Results
07/10/25
06:34
WBC Pending
Hgb Pending
Hct Pending
Plt Count Pending
Sodium Pending
Potassium Pending
Chloride Pending
Carbon Dioxide Pending
BUN Pending
Creatinine Pending
Glucose Pending
Calcium Pending
Vital Signs:
Vital Signs
Temp Pulse Resp BP Pulse Ox
97 F 83 16 111/69 99
07/10/25 03:12 07/10/25 03:12 07/10/25 03:12 07/10/25 03:12 07/10/25 03:12
I&O
07/09/25 07/10/25 07/11/25
06:59 06:59 06:59
Intake Total 880 / 880 960 / 960
Balance 880 / 880 960 / 960
[2025-07-10 07:35] LABS: Hematocrit 30.5 % (37.0-47.0); Hemoglobin 10.6 g/dL (12.0-16.0); Mean Corp Hgb Conc. 34.8 g/dL (33.0-37.0); Mean Corpuscular Volume 89.7 fL (81.0-99.0); Platelet Count 175 10^3/uL (130-400); Red Cell Dist. Width 13.3 % (11.5-14.5)
[2025-07-10 07:37] LABS: Blood Urea Nitrogen 19 mg/dl (7-17); Calcium 9.5 mg/dl (8.4-10.2); Carbon Dioxide 29 mmol/L (22-30); Chloride 102 mmol/L (98-107); Estimated Creatinine Clearance 64 ml/min; Glucose 101 mg/dl (70-99); Magnesium 2.0 mg/dl (1.6-2.3); Potassium 4.2 mmol/L (3.5-5.1); Sodium 132 mmol/L (135-145); eGFR > 60.00
[2025-07-10 08:20] VITALS: BP 137/76
[2025-07-10] MEDS: SENOKOT 17.2 MG PO (08:58)
[2025-07-10] MEDS: ASPIRIN 325 MG PO (08:58)
[2025-07-10] MEDS: TYLENOL 650 MG PO ×3 (08:58→15:00)
[2025-07-10] MEDS: COLACE 100 MG PO (08:58)
[2025-07-10] MEDS: VITAMIN B-12 1000 MCG PO (08:59)
[2025-07-10] MEDS: DIOVAN 160 MG PO (08:59)
[2025-07-10] MEDS: NORVASC 2.5 MG PO (08:59)
[2025-07-10 10:16] VITALS: BP 121/78
--- NOTE | 2025-07-10 10:42 | CM ---
CM following re: discharge planning.
Reviewed pt's chart, met with pt.
According to pt probably will be discharged this afternoon. Pt is aware, expressed her agreement and pt requested [facility].
IMM reviewed, placed on chart, pt has a copy.
CM spoke to [facility] director of real estate and she confirmed that pt is accepted for admission today. COVID test requested. is aware. Requested copies of pt's insurance cards sent to [facility] director of real estate.
to arrange ambulance transport BLS. PMNC completed and left with
[facility] nursing report: [phone]
Discharge instructions with COVID test result fax to: [phone]
D/C plan: [facility].
[2025-07-10 10:53] VITALS: BP 127/80
[2025-07-10] MEDS: ZOFRAN 4 MG IV (10:59)
[2025-07-10 12:27] LABS: COVID-19 Antigen Negative (Negative)
[2025-07-10 12:55] LABS: Hematocrit 31.9 % (37.0-47.0); Hemoglobin 10.9 g/dL (12.0-16.0)
--- NOTE | 2025-07-10 13:58 | W.DCSUMMARY ---
Discharge Summary
Discharge Data
Date of Admission: 07/06/25
Date of Discharge: 07/10/25
-
Pending Results: No
Discharge Plan
-
Patient Disposition: Jail/SNF
Discharge Diagnosis/Procedures: Right Femur Fracture status post right hip hemiarthroplasty performed 07/07/25
Chronic Hyponatremia
Hypertension
Post-op mild acute blood loss anemia
Anemia of Chronic Disease
Low normal B12 level
Condition: Fair
Diet: Regular and Restrict fluids to 48 oz
Activity: With assistance, As tolerated and With Walker
Driving Restrictions: Not until seen by your Dr
Blood Work: Repeat CBC and BMP with primary care provider in 1 week of discharge.
Repeat Iron studies and B12 level with primary care provider in 1 month of discharge
Other Services: PT and OT
Activity Restrictions/Additional Instructions:
Follow up with primary care provider in 1 week of discharge and Orthopedic in 2 weeks of discharge.
Aspirin prescribed for DVT prophylaxis following recent orthopedic surgical procedure. Follow up with Orthopedic to determine when safe to discontinue. You were started on Aspirin DVT prophylaxis on 07/07/25
Tylenol and oxycodone prescribed as needed for pain.
Senokot-S prescribed for constipation prophylaxis while on opiate pain meds. Hold if diarrhea or off opiate pain meds.
Hydrochlorothiazide discontinued due to hyponatremia. Blood pressure stable without.
Vitamin B12 supplementation prescribed due to low levels.
Please take medications as prescribed/recommended and follow up with primary care provider and/or other healthcare provider involved in your care for refills and/or further adjustment to your medication regimen as necessary.
Referrals:
Logan Mukherjee MD [Active, Orthopedics] - in two weeks
UNKNOWN - PT DOES,NOT KNOW [Family Provider]
Prescriptions:
New
aspirin 325 mg Tablet
325 mg PO DAILY Qty: 24 0RF
oxycodone 5 mg Tablet
2.5 mg PO Q6HPRN PRN (Reason: moderate pain) Qty: 6 0RF
oxycodone 5 mg Tablet
5 mg PO QIDPRN PRN (Reason: severe pain) Qty: 12 0RF
valsartan 160 mg Tablet
160 mg PO DAILY Qty: 30 0RF
sennosides-docusate sodium [Senokot-S] 8.6-50 mg tablet
1 tab-cap PO BID Qty: 60 0RF
Rx Instructions:
Hold if diarrhea or off opiate pain medications
cyanocobalamin (vitamin B-12) [Vitamin B-12] 500 mcg Tablet
1,000 mcg PO DAILY Qty: 30 0RF
acetaminophen [Tylenol] 325 mg tablet
650 mg PO Q4H PRN (Reason: Pain) Qty: 180 0RF
Continued
amlodipine 2.5 mg tablet
2.5 mg PO DAILY
simvastatin 20 mg tablet
20 mg PO HS
Vitamin D3
2,000 cap PO BID
Discontinued
valsartan-hydrochlorothiazide 160-25 mg tablet
1 tab PO DAILY
Discharge Orders:
Discharge Patient (As Directed); Ordered 07/10/25
Ordered By: Rosa Isela Chavez
Discharge Date and Time
Print Language: DOMINICAN
[2025-07-10] MEDS: ROXICODONE 2.5 MG PO (15:00)
[2025-07-10 15:08] VITALS: BP 131/69
== END 2025-07-10 16:35 | DRG 522 ==
LOC: 2 SOUTH 22:14
PROVIDERS: ADMITTING PHYSICIAN Internal Medicine; ATTENDING PHYSICIAN Internal Medicine; CONSULT PHYSICIAN Orthopaedic Surgery; EMERGENCY PHYSICIAN Emergency Medicine
PROC: 0SRR0J9 Replacement of Right Hip Joint, Femoral Surface with Synthetic Substitute, Cemented, Open Approach (ICD-10-PCS; 2025-07-07)
DX: M80.051A Age-related osteoporosis with current pathological fracture, right femur, initial encounter for fracture (principal); D62 Acute posthemorrhagic anemia; E22.2 Syndrome of inappropriate secretion of antidiuretic hormone; S72.001A Fracture of unspecified part of neck of right femur, initial encounter for closed fracture; I10 Essential (primary) hypertension; D63.8 Anemia in other chronic diseases classified elsewhere; W01.0XXA Fall on same level from slipping, tripping and stumbling without subsequent striking against object, initial encounter; E78.00 Pure hypercholesterolemia, unspecified; I44.4 Left anterior fascicular block; Z88.1 Allergy status to other antibiotic agents; Z96.651 Presence of right artificial knee joint; Z11.52 Encounter for screening for COVID-19
CPT/HCPCS: 71101; 72170; 73502; 73552; 73700; 80048; 80053; 82607; 82728; 82746; 83540; 83550; 83735; 84100; 85014; 85018; 85025; 85027; 85610; 86850; 86900; 86901; 87811; 93005; 96374; 97116; 97163; 97167; 97530; 97535; 99285; C1713; C1776

== ENCOUNTER 2025-07-21 02:01 | Inpatient (IN) | payer MEDICARE, OTHER, SELFPAY ==
[2025-07-20 21:41] VITALS: BP 167/96
[2025-07-20 22:00] VITALS: BP 154/97
[2025-07-20 22:09] LABS: Hematocrit 36.5 % (37.0-47.0); Hemoglobin 12.4 g/dL (12.0-16.0); Mean Corp Hgb Conc. 34.0 g/dL (33.0-37.0); Mean Corpuscular Volume 91.7 fL (81.0-99.0); Nucleated Red Blood Cells % 0 %; Platelet Count 404 10^3/uL (130-400); Red Cell Dist. Width 13.4 % (11.5-14.5)
[2025-07-20 22:23] LABS: COVID-19 Antigen Negative (Negative)
[2025-07-20 22:30] LABS: ALT (SGPT) 39 U/L (0-35); AST (SGOT) 52 U/L (14-36); Albumin 3.6 g/dl (3.5-5.0); Alkaline Phosphatase 207 U/L (38-126); Blood Urea Nitrogen 16 mg/dl (7-17); Calcium 9.5 mg/dl (8.4-10.2); Carbon Dioxide 23 mmol/L (22-30); Chloride 108 mmol/L (98-107); Glucose 108 mg/dl (70-99); Potassium 3.3 mmol/L (3.5-5.1); Sodium 137 mmol/L (135-145); Total Protein 6.2 g/dl (6.3-8.2); eGFR > 60.00
[2025-07-21] VITALS (13 sets, daily range): BP systolic 116–159; BP diastolic 60–98; BMI 24.9; BMI 23.6
--- NOTE | 2025-07-21 00:19 | ED.GENMED ---
History of Present Illness
General
Chief Complaint: Breathing Problem
Source: patient
Exam Limitations: none
Time Seen by Provider: 07/20/25 21:58
Nursing documentation reviewed up to this point in time: agreed with
History of Present Illness
History of Present Illness:
Note:
CHIEF COMPLAINT(S)
Lightheadedness and shortness of breath upon exertion.
HISTORY OF PRESENT ILLNESS
The patient is a 80-year-old female with a recent history of right hip surgery performed approximately two weeks ago. This morning, while walking to a physical therapy session, she experienced sudden lightheadedness and shortness of breath. She
described the sensation as 'all of a sudden' and reported that she felt as if she 'couldn't catch her breath.' Upon stopping and sitting, the lightheadedness resolved, though the shortness of breath persisted. The patient has been experiencing
fluctuations in blood pressure, initially dropping to 110/72 mmHg and then rising to 154/97 mmHg. The lightheadedness recurred later when attempting to walk to the bathroom. She denied any chest pain, leg pain, panic, dyspnea on exertion, changes to
her vision, or recent episodes of constipation or diarrhea. She reported no fever, and the surgical site appears well-healed.
The patient mentioned recent use of oxycodone post-operatively but only as needed, with a threshold for use being significant pain (rated above 4 out of 10). She also reports taking losartan, amlodipine, and aspirin as part of her regular
medications.
PAST MEDICAL AND SURGICAL HISTORY
- Recent right hip surgery 2 weeks ago
MEDICATIONS
- Losartan
- Amlodipine
- Aspirin
- Oxycodone (as needed for significant pain)
REVIEW OF SYSTEMS
- Cardiovascular: Reports fluctuation in blood pressure.
- Respiratory: Shortness of breath without chest pain.
- Neurological: Lightheadedness upon exertion.
- Gastrointestinal: No current constipation or diarrhea, surgical site well-healed.
- Musculoskeletal: Ribs bruised from previous fall, x-ray confirmed no fractures.
PHYSICAL EXAM
General: Alert, no acute distress.
Skin: Warm, dry. OpSite on the right lateral hip appears clean and intact. Letty are in place. No signs of infection.
Head: Normocephalic, atraumatic.
Neck: Supple, trachea midline.
Eye Ears, nose, mouth and throat: Oral mucosa moist.
Cardiovascular: Normal peripheral perfusion, No edema. Tachycardia on the monitor rate of 120s to 130s
Respiratory: Respirations are non-labored.
Gastrointestinal : Abdomen nondistended, surgical site appears well-healed.
Back: Normal range of motion, Normal alignment.
Musculoskeletal: Normal ROM, normal strength.
Neurological: Alert and oriented to person, place, time, and situation, No focal neurological deficit observed.
Psychiatric: Cooperative, appropriate mood & affect.
PLAN
Due to the patients symptoms and recent surgical history, we will perform a CT scan of the chest to rule out pulmonary embolism or any other cardiac/pulmonary event. Blood work will be undertaken, including D-dimer and routine labs, to assist in
diagnosing any underlying conditions contributing to the symptoms.
DIFFERENTIAL DIAGNOSIS
The Differential Diagnosis includes, in no particular order and is not limited to:
1. Pulmonary embolism
2. Postural hypotension
3. Cardiac arrhythmia
4. Pneumonia
5. Anemia
6. Heart failure
7. Acute coronary syndrome
8. Anxiety or panic attack
9. Hypoxemia
10. Medication side effects
CARE-UPDATE
07/21/25 - :33
CT chest with IV contrast reveals extensive bilateral pulmonary embolism with moderate heart strain, RV/LV ratio ~1.8. Saddle embolism present in main pulmonary artery with filling defects across all lobar and segmental pulmonary arteries
bilaterally. Evidence of diffuse metastatic disease and coronary artery calcifications noted. Posterior dependent bilateral lower lobe atelectasis observed. No lung consolidation, pneumothorax, or pleural effusion detected. Theres noted diffuse
bronchial wall thickening.
CARE-UPDATE
07/21/25 - :37
Discussed with hospitalist, immigration associate, and interventional radiologist that no catheter-guided thrombolysis will be performed tonight given the patients stable vital signs.
Disposition:
SUMMARY OF ENCOUNTER
The patient, a 80-year-old female, presented with a massive pulmonary embolism. She experienced sudden lightheadedness and shortness of breath upon exertion. This sudden onset of symptoms led to imaging studies confirming extensive bilateral
pulmonary embolism. Given her stable vital signs, catheter-guided thrombolysis was not performed immediately. In the emergency department, the patient was started on heparin to manage the embolism.
DISPOSITION
Admit
ASSESSMENT
Suspected massive pulmonary embolism based on symptoms and radiology findings, requiring anticoagulation and hospital admission.
MANAGEMENT OF THE PATIENTS CARE WAS DISCUSSED WITH
cost accounting manager, interventional radiologist, and hospice team were all involved in the discussion regarding the patients management plan.
PLAN
The patient will be admitted for comprehensive management of the pulmonary embolism, including continued monitoring and anticoagulation therapy.
INDEPENDENT REVIEW OF LABS AND INTERPRETATION OF TESTS
extensive bilateral pulmonary embolism with moderate heart strain and a saddle embolism in the main pulmonary artery.
MEDICATION RECONCILIATION
The patient was started on heparin.
MEDICAL DECISION MAKING
- Complexity of Data Reviewed: Chronic conditions affecting care include recent right hip surgery. Differential diagnosis considered pulmonary embolism, postural hypotension, cardiac arrhythmia, pneumonia, anemia, heart failure, acute coronary
syndrome, anxiety or panic attack, hypoxemia, and medication side effects.
- Data:
Category [address]
In[address] scan confirmed extensive pulmonary embolism.
Category 3
Discussion of management with mold hoister, immigration associate, interventional radiologist, and hospice team.
-Risk: Admission initiated due to the risk of complications from a massive pulmonary embolism and the need for immediate and continuous anticoagulation treatment.
DIAGNOSIS
Pulmonary embolism (ICD-10 I26.99).
Past History
Past History
ED Past Surgical History: Orthopedic
Social History
Tobacco: Non-smoker
Alcohol: None
Drug: None
Personal:
Living: with family
Employment: Retired
Review of Systems
Review of Systems
Allergies reviewed?: Yes
All Other Systems: ROS reviewed and negative except as documented in HPI and ROS
Constitutional: Reports no symptoms
EENT: Reports no symptoms
Respiratory: Reports no symptoms
Cardiac: Reports no symptoms
ABD/GI: Reports no symptoms
: Reports no symptoms
Musculoskeletal: Reports no symptoms
Skin: Reports no symptoms
Neurological: Reports no symptoms
Endocrine: Reports no symptoms
Hematologic/Lymphatic: Reports no symptoms
Psychiatric: Reports no symptoms
Phy Exam
Physical Exam
Physical Exam:
.
Scores
Heart Failure Risk
Heart Failure Risk Score: Not Applicable
Course
Orders/Labs/Results
Orders:
Orders
07/20/25 21:57
Complete Blood Count/With Diff Urgent
Comprehensive Metabolic Panel Urgent
CXR2 [CR Chest - 2 Views ] Urgent
Comment:
Reason For Exam: sob
07/20/25 21:58
COVID-19 Antigen Routine
Source: Nasal Swab
Influenza A+B Rapid Molecular Urgent
ABBY Source: Nasal Swab
Specimen Description:
07/20/25 22:12
CT Chest PE Study Urgent
Comment:
Reason For Exam: tachy, dyspnea, s/p hip sx
07/21/25 00:35
Heparin 5,100 units IV NOW STA
Nursing to Place Non Medication Order As Directed
Physician Order: PTT 6 hours after initial start of Heparin infusion
Above order entered?: Yes
07/21/25 00:45
Heparin 61631 Units/250 ml 25,000 units in 250 ml IV PER PROTOCOL
Weight to be used for heparin protocol in kilograms (kg):: 63.7
Protocol:: DVT/PE
PTT Goal Range to be used:: PTT 73 to 111 seconds
Order type:: Initial
INITIAL Infusion Dose (UNITS/KG/hr) & then follow protocol:: 18 units/kg/hr
Infusion Dose in UNITS/hr & then follow protocol (UNITS/hr):: 1,100
INFUSION RATE in mL/hr & then follow protocol (mL/hr):: 11
For DVT/PE algorithm, re-bolus for low PTT?: Yes
PTT less than or equal to 64 seconds:: Re-bolus 80 units/kg (max 10,000units). Increase by 300 units/hr
(+ 3mL/hr)
PTT 64.1 to 72.9 seconds:: Re-bolus 40 units/kg (max 5,000 units). Increase by 100 units/hr
(+ 1mL/hr)
PTT 73 to 111 seconds:: Target Range. No change in rate.
PTT 111.1 to 130.9 seconds:: Decrease rate by 100 units/hr (- 1 mL/hr)
PTT 131 to 199.9 seconds:: HOLD for 1 hr. Then decrease by 200 units/hr (- 2mL/hr)
PTT greater than or equal to 200 seconds:: HOLD for 2 hrs & Notify Provider. Then decrease by 300 units/hr
(- 3mL/hr)
Lab follow-up:: Each change, PTT q6h until 2 consecutive are therapeutic. Then
PTT daily.
07/21/25 00:49
PTT Urgent
Comment: Obtain baseline before beginning heparin infusion if not already collected
07/21/25 00:50
Heparin 2,500 units IV PRN PRN
07/21/25 00:52
Heparin 5,100 units IV PRN PRN
07/21/25 01:50
Admit/Transfer Patient As Directed
Co-Sign Provider:
Level of Care: Inpatient admission
Assign to:: IMU- Intermediate Care
Physician / Group: andreas
Diagnosis: pulmonary embolism
Reason for Hospitalization: submassive pulmonary embolism
Expected length of stay greater than two midnights?: Yes
ELOS- Estimated Length of Stay in days: 2
I certify the patient meets the requirements for IP care: Yes
PRN Pain Medication Management As Directed
May give lesser potent ordered pain med per pt: Yes
preference::
Protocol:: Medication orders for pain may be administered in a
manner that supports deferring to patient preference
when the pt is:
- Requesting an ordered lesser potent pain medication.
Least to most potent pain medications are defined
as: acetaminophen < NSAID < tramadol < opioids
(morphine, oxycodone, hydromorphone).
- Requesting a lesser dose of the same medication IF
ORDERED.
- Requesting a less intrusive route of administration
if both routes are prescribed by the provider (PO <
IV).
07/21/25 01:52
Code Status As Directed
Resuscitation Status: Full Code
07/21/25 03:41
Acetaminophen [Tylenol] 650 mg PO Q4HPRN PRN
HYDROmorphone [Dilaudid] 0.5 mg IV Q4HPRN PRN
07/21/25 03:41
Echo 2D MMode Color/Doppler Routine
Reason for Study: pulmonary embolism
IRAD CONSULT Routine
Consulting Provider: Oni Xiao
Was physician already notified: Yes
Procedure being ordered, including laterality if applicable: possible pulmonary artery thrombolysis
Acknowledgement that appropriate orders are entered: Yes
Forge Tender Consult Routine
Consulting Provider: Maxime Tian
Was physician already notified: Yes
Heparin Protocol- PTT Orders As Directed
PTT per Heparin protocol: -Obtain CBC and baseline PTT - if not already collected.
-Obtain PTT 6 hours from start of infusion. Then, every 6 hours until 2 consecutive
PTT's are therapeutic. Then, PTT Daily.
-With each rate change, obtain PTT every 6 hours until 2 consecutive PTT's are
therapeutic. Then, PTT Daily.
Activity As Directed
Activity Level: With Assistance
Bladder Scan As Directed
Follow Bladder Retention/Intermittent Cath Algorithm?: Yes
Frequency: Per Retention Algorithm
Comment: as per intermittent urinary catheter algorithm
Bladder Scan As Directed
Follow Bladder Retention/Intermittent Cath Algorithm?: Yes
PRN if no void in __ hours: 6
Frequency: Per Retention Algorithm
If Bladder Scan Result >: 400
then:: Straight cath
Intake/ Output As Directed
Frequency: Per unit guidelines
Notify MD As Directed
Notify physician if: PTT is greater than or equal to 200.
Straight Cath As Directed
Frequency: Per Retention Algorithm
Additional Instructions: as per intermittent urinary catheter algorithm
Straight Cath As Directed
Frequency: Per Retention Algorithm
Additional Instructions: straight cath as needed per acute urinary retention algorithm for 24 hrs
Additional Instructions: for bladder scan greater than 400 mL
Vital Signs As Directed
Frequency: Per unit guidelines
O2 Therapy [RESP] Routine
Nasal Cannula Liter Flow: 2 LPM
Titrate/Wean O2 to maintain O2 sat greater than (%): 90
Pulse Ox/cont/shift [RESP] Routine
Quantity: 1
Special Instructions: check O2 Sat Q8 hours and at each change in oxygen liter flow and FiO2
Pt Eval And Treat Routine
Activity Level: With Assistance
07/21/25 06:00
Electrocardiogram (*1) IN AM
Reason for Study: Other
Other Reason for Exam: pulmonary embolism
07/21/25 06:07
Basic Metabolic Panel IN AM
LFT [Befvm-[id number]-Satzaav] IN AM
Magnesium IN AM
PTT Urgent
Comment: Obtain baseline before beginning heparin infusion if not already collected
Troponin I IN AM
07/21/25 08:00
Docusate Sodium [Colace] 100 mg PO BID
Polyethylene Glycol Powder [Miralax] 17 grams PO DAILY
Valsartan [Diovan] 160 mg PO DAILY
07/21/25 22:00
Atorvastatin [Lipitor] 10 mg PO HS
07/23/25 06:00
Complete Blood Count/No Diff Q2D
Comment: notify provider: Platelet count < 130,000 or decrease by 50% from baseline
07/25/25 06:00
Complete Blood Count/No Diff Q2D
Comment: notify provider: Platelet count < 130,000 or decrease by 50% from baseline
07/27/25 06:00
Complete Blood Count/No Diff Q2D
Comment: notify provider: Platelet count < 130,000 or decrease by 50% from baseline
07/29/25 06:00
Complete Blood Count/No Diff Q2D
Comment: notify provider: Platelet count < 130,000 or decrease by 50% from baseline
07/31/25 06:00
Complete Blood Count/No Diff Q2D
Comment: notify provider: Platelet count < 130,000 or decrease by 50% from baseline
08/02/25 06:00
Complete Blood Count/No Diff Q2D
Comment: notify provider: Platelet count < 130,000 or decrease by 50% from baseline
08/04/25 06:00
Complete Blood Count/No Diff Q2D
Comment: notify provider: Platelet count < 130,000 or decrease by 50% from baseline
08/06/25 06:00
Complete Blood Count/No Diff Q2D
Comment: notify provider: Platelet count < 130,000 or decrease by 50% from baseline
Abnormal Lab Results
07/20/25
21:57
RBC 3.98 L 10^6/uL
(4.20-5.40)
Hct 36.5 L %
(37.0-47.0)
MCH 31.2 H pg
(27.0-31.0)
Plt Count 404 H 10^3/uL
(130-400)
Absolute Monos (auto) 0.8 H 10^3/uL
(0.1-0.6)
Lymphocytes % 17.4 L %
(20.5-51.1)
Potassium 3.3 L mmol/L
(3.5-5.1)
Chloride 108 H mmol/L
(98-107)
Creatinine 0.5 L mg/dL
(0.6-1.0)
Glucose 108 H mg/dl
(70-99)
AST 52 H U/L
(14-36)
ALT 39 H U/L
(0-35)
Alkaline Phosphatase 207 H U/L
(38-126)
Total Protein 6.2 L g/dl
(6.3-8.2)
07/20/25 21:57
07/20/25 21:57
Vital Signs
Initial and Last Documented VS:
Initial Vital Signs
Pulse Resp BP Pulse Ox
121 24 167/96 95
07/20/25 21:41 07/20/25 21:41 07/20/25 21:41 07/20/25 21:41
Last Documented Vital Signs
Temp Pulse Resp BP Pulse Ox
98.3 F 94 17 138/90 97
07/21/25 04:20 07/21/25 06:00 07/21/25 06:00 07/21/25 06:00 07/21/25 06:00
*Radiology
Radiology exam reviewed: radiology read reviewed
*Pulse Oximetry
SaO2: 91
Oxygen Mode of Delivery: Room air
Patient hypoxic: yes
*Critical Care Note
Total Time (30-74mins, 75-104mins- exclusive of procedures): 45 (Critical care statement: A total of 45 minutes of critical care time was provided for this patient. This time is separate from time utilized to perform the aforementioned documented
procedures. Aggregate critical care time includes only time during which I was engaged in work directl)
Update Note
Update Note:
PERT alert called at 12:19 AM
NAME: BARTOLO WILKINSON
DATE OF EXAM: 07/20/2025
Patient No: [id number]
Physician: SULLY^LUIZ^Brenda
Date of : 1945
Past Medical History (entered by Technologist):
Reason For Exam (entered by Technologist): tachy, dyspnea, s/p hip sx
Other Notes (entered by Technologist): no prior ct
Additional Information (per Vision Radiologist):
CT chest with IV contrast, angiogram
IMPRESSION:
Extensive pulmonary embolism bilaterally with moderate right heart strain, RV to LV ratio of approximately 1.8. Saddle embolism in the main pulmonary artery with filling defect in all lobar and scattered segmental pulmonary arteries bilaterally.
Diffuse atheromatous disease. Coronary artery calcifications.
Posterior dependent bilateral lower lobe atelectasis. No lung consolidation, pneumothorax or pleural effusion. Mild diffuse bronchial wall thickening.
Case discussed with Dr. Solares in the ED at 12:15 AM Eastern time
Case finalized on 07/21/25 00:21 EST
ED Attending Note
-
Portions of this chart may have been created with voice recognition software.� Occasional wrong word or��sound alike� substitutions may have occurred due to the inherent limitations of voice recognition software.
Discharge Plan
Departure
Patient Disposition: Admit
Date of Disposition: 07/21/25
Time of Disposition: 01:00
Admit to: ICU
Presentation/result/management discussed w/ accepting MD/DO: Hospitalist
Discharge Problem:
Acute massive pulmonary embolism
Interventions
Interventions:
*Risk Screen - Suicide Last Done: 07/20/25 21:51
*General Assessment Last Done: 07/20/25 21:52
*Neglect/Abuse Screening Last Done: 07/20/25 21:52
*ED- Fall Risk Assessment Last Done: 07/20/25 21:53
*ED COVID-19 Vaccine History Last Done: 07/20/25 21:53
*Nursing Disposition Last Done: 07/21/25 03:51
ED- Cardiac Assessment Last Done: 07/20/25 21:53
ED- Pulmonary Assessment Last Done: 07/20/25 21:53
Discharge Date and Time
Discharge Date/Time: 07/21/25 03:52
[2025-07-21] MEDS: HEPARIN 5100 UNITS IV (00:53)
[2025-07-21] MEDS: HEPARIN 25000 UNITS/250 ML IV ×2 (00:54→23:19)
[2025-07-21 01:06] LABS: APTT 24.5 Sec (23.4-35.0)
--- NOTE | 2025-07-21 01:41 | HPS.HSE ---
Family Physician
-
Family Physician: NOT KNOW UNKNOWN - PT DOES
Chief Complaint
-
Trouble breathing
History of Present Illness
This is a 80-year-old female with past medical history significant for hypertension, hyperlipidemia, prior right total knee arthroplasty, recent fall with right femoral neck fracture approximately 2 weeks ago status post right hip hemiarthroplasty
who now presents to the emergency department with difficulty breathing.
She was discharged on full dose aspirin prophylaxis for DVT. She reports experiencing sudden lightheadedness and shortness of breath during physical therapy. With activity she states all of a sudden she could not catch her breath with sensation
improving upon sitting but shortness of breath persisted. She reports lightheadedness recurred again when she attempted to walk to the bathroom.
She denied having any chest pain, palpitations. She reports any worsening pain in her lower extremities. She denies any fevers or chills. She denies any drainage or leakage from incision site.
In the emergency department she was afebrile, blood pressure of 150/92 pulse was 108, she was satting 91% on room air. Her chest x-ray was clear. CBC was completely within the normal range. Electrolyte BUN/creatinine were normal. LFT shows a
small increases in AST ALT and alk phos. ECG is nonischemic.
CT of the chest showing extensive pulmonary embolism bilaterally with moderate right heart strain, saddle embolism in the main pulmonary artery with filling defect in all lobar and scattered segmental pulmonary arteries bilaterally. There is
bilateral lower lobe atelectasis, no consolidation pneumothorax or effusion.
Medical History
Past Medical History
Past Medical History: Reports HTN and Hypercholesterolemia
Past Surgical History: Reports Orthopedic (Right total knee arthroplasty, status post right hip hemiarthroplasty)
Social History
Tobacco: Non-smoker
Alcohol: None
Drug: None
Family History
Family History: Not pertinent
Allergies / Home Medications
Allergies reflects when Allergies were last updated in [facility].
Home Medications with original date entered in [facility]
Allergy/Medication List:
Allergies
Allergy/AdvReac Type Severity Reaction Status Date / Time
azithromycin Allergy Mild Vomiting Verified 07/06/25 19:49
Home Medications
Vitamin D3 2,000 cap PO BID Supplement 07/06/25
amlodipine 2.5 mg tablet 2.5 mg PO DAILY Blood Pressure 07/06/25
simvastatin 20 mg tablet 20 mg PO HS High Cholesterol 07/06/25
acetaminophen 325 mg tablet (Tylenol) 650 mg (2 x 325 mg) PO Q4H PRN Pain #180 tabs 07/10/25
aspirin 325 mg tablet 325 mg PO DAILY #24 tabs 07/10/25
cyanocobalamin (vitamin B-12) 500 mcg tablet (Vitamin B-12) 1,000 mcg (2 x 500 mcg) PO DAILY #30 tabs 07/10/25
oxycodone 5 mg tablet 2.5 mg (1/2 x 5 mg) PO Q6HPRN PRN moderate pain #6 tabs 07/10/25
oxycodone 5 mg tablet 5 mg PO QIDPRN PRN severe pain #12 tabs 07/10/25
sennosides 8.6 mg-docusate sodium 50 mg tablet (Senokot-S) 1 tab-cap PO BID #60 tabs 07/10/25
valsartan 160 mg tablet 160 mg PO DAILY #30 tabs 07/10/25
Review of Systems
-
Constitutional: Reports No Symptoms
EENT: Reports No Symptoms
Respiratory: Reports Trouble Breathing
Cardiac: Reports No Symptoms
Abdomen/GI: Reports No Symptoms
: Reports No Symptoms
Musculoskeletal: Reports No Symptoms
Skin: Reports No Symptoms
Neurological: Reports Dizzy
Endocrine: Reports No Symptoms
Hematologic/Lymphatic: Reports No Symptoms
Psych: Reports No Symptoms
Physical Exam
Vital Signs
Vital Signs
Pulse Resp BP Pulse Ox
108 20 143/92 91
07/21/25 00:15 07/21/25 00:15 07/21/25 00:00 07/21/25 00:19
Physical Exam
General: Well Developed, Well Nourished and No Apparent Distress
HEENT: NormoCephalic, Moist mucous membranes and Atraumatic
Respiratory: Clear
Cardiac: S1/S2 and Regular Rhythm; No Murmur or Rub
GI: Soft, Non Tender, Non Distended and Normal Bowel Sounds; No Organomegaly
Rectal: Deferred by Provider
Musculoskeletal: No Clubbing, No Cyanosis, No Edema and Other (Incision sites appears well-healed.)
Skin: No Rash
Neuro: AO x 3 and Nonfocal/grossly intact
Hematologic/Lymphatic: No Lymphadenopathy
Psych: Calm
Laboratory Results
-
07/20/25 21:57
07/20/25 21:57
Laboratory Results
APTT 24.5 Sec (23.4-35.0) 07/21/25 00:49
Total Bilirubin 0.5 mg/dl (0.2-1.3) 07/20/25 21:57
AST 52 U/L (14-36) H 07/20/25 21:57
ALT 39 U/L (0-35) H 07/20/25 21:57
Alkaline Phosphatase 207 U/L (38-126) H 07/20/25 21:57
Data Reviewed
-
Diagnostic Radiology: Image Personally Visualized and interpreted
CT Scan: Report Reviewed by me
Lab Data: Labs Reviewed by me
Old Records: Reviewed
Impression/Plan
-
IMPRESSION:
80-year-old female with past medical history of hypertension and hyperlipidemia who is 2 weeks status post right hip hemiarthroplasty for femoral neck fracture now presents to the emergency department with acute episode of shortness of breath and
lightheadedness and was found to have extensive bilateral PE with saddle embolus and right heart strain on CT scan. She is on room air satting 91%. She is hemodynamically stable. No evidence of cardiac ischemia at this time. She meets criteria
for submassive PE. Case discussed with sweetbread trimmer and interventional radiologist. No plans for immediate thrombolysis.
PLAN:
Submassive pulmonary embolism -likely provoked status post hip surgery, hemodynamically stable, 2L supplemental oxygen use at rest
-Admit to IMU
-Heparin drip
-npo with sips for now, maintenance fluids, advance diet if stable and no procedures in am.
-Continue pain control and antiemetics
-Echo, ECG, troponins with a.m. labs
-possible thrombolysis if decompensates or finding show severe cardiac dysfunction
-Hold parameters on valsartan, will hold amlodipine for now
-Pulmonary consult, interventional consult
CODE STATUS -full code
[2025-07-21] MEDS: D5LR 1000 IV (04:05)
--- NOTE | 2025-07-21 04:20 | PTCARENOTE ---
rec'd pt from ER as IMU overflow. pt oriented x3, denies pain/CP/SOB. heparin gtt infusing. on 2L NC. ST on monitor. IVF initiated. purewick placed, initial output 500ml. R hip with kennedy. CHG bath done. call fonseca in reach.
[2025-07-21 06:30] LABS: APTT 95.1 Sec (23.4-35.0)
[2025-07-21 07:03] LABS: Troponin I 0.385 ng/ml
[2025-07-21 07:19] LABS: ALT (SGPT) 33 U/L (0-35); AST (SGOT) 36 U/L (14-36); Albumin 3.2 g/dl (3.5-5.0); Alkaline Phosphatase 166 U/L (38-126); Blood Urea Nitrogen 14 mg/dl (7-17); Calcium 9.4 mg/dl (8.4-10.2); Carbon Dioxide 25 mmol/L (22-30); Chloride 107 mmol/L (98-107); Estimated Creatinine Clearance 65 ml/min; Glucose 124 mg/dl (70-99); Magnesium 1.7 mg/dl (1.6-2.3); Potassium 3.5 mmol/L (3.5-5.1); Sodium 136 mmol/L (135-145); Total Protein 5.6 g/dl (6.3-8.2); eGFR > 60.00
--- NOTE | 2025-07-21 07:50 | CON.PUL ---
Addendum entered and electronically signed by Rosalinda Cho MD 07/21/25 12:13:
D/w IR service
Patient currently clinically doing well, hemodynamically stable, not requiring any pressors and on minimal supplemental oxygen. With right hip hemiarthroplasty 2 weeks ago, holding off catheter directed therapies for now. Continue heparin, await
echocardiogram. If patient develops any hemodynamic instability, will reconsider catheter directed therapies.
- Patient can be transferred to telemetry floor, pulmonary team will continue to follow along
Original Note:
Consultation
Consultation Request
Date/Time Consultation Requested: 07/21/2025
Date/Time Consultation Performed: 07/21/2025
Medical History
-
Chief Complaint: Dyspnea
History of Present Illness:
Patient is a 80-year-old gentleman with history of hypertension and hyperlipidemia who recently had a fall complicated by femoral neck fracture requiring right hip arthroplasty and was discharged from the hospital about 10 days ago. Patient
developed episode of dizziness and shortness of breath suddenly during physical therapy. Symptoms recurred and patient was evaluated in the emergency room where he was hemodynamically stable with borderline low oxygen saturation. CT scan was
suggestive of bilateral pulmonary embolism along with right heart strain and elevated troponin. Overnight PERT team was activated and heparin infusion was recommended. Pulmonary consultation was requested for further input.
Past Medical History
Past Medical History: Reports HTN and Hypercholesterolemia
Past Surgical History: Reports Orthopedic (Right total knee arthroplasty, status post right hip hemiarthroplasty)
Social History
Tobacco: Non-smoker
Alcohol: None
Drug: None
Family History
Family History: Not pertinent
Allergies / Home Medications
Allergies
Allergy/AdvReac Type Severity Reaction Status Date / Time
azithromycin Allergy Mild Vomiting Verified 07/06/25 19:49
Home Medications
�Medication �Instructions �Recorded �Confirmed �Last Taken �Type
Vitamin D3 2,000 cap PO BID Supplement 07/06/25 07/06/25 07/06/25 History
amlodipine 2.5 mg tablet 2.5 mg PO DAILY Blood Pressure 07/06/25 07/06/25 Unknown History
simvastatin 20 mg tablet 20 mg PO HS High Cholesterol 07/06/25 07/06/25 Unknown History
acetaminophen 325 mg tablet 650 mg (2 x 325 mg) PO Q4H PRN 07/10/25 Unknown Rx
(Tylenol) Pain #180 tabs
aspirin 325 mg tablet 325 mg PO DAILY #24 tabs 07/10/25 Unknown Rx
cyanocobalamin (vitamin B-12) 500 1,000 mcg (2 x 500 mcg) PO DAILY 07/10/25 Unknown Rx
mcg tablet (Vitamin B-12) #30 tabs
oxycodone 5 mg tablet 2.5 mg (1/2 x 5 mg) PO Q6HPRN PRN 07/10/25 Unknown Rx
moderate pain #6 tabs
oxycodone 5 mg tablet 5 mg PO QIDPRN PRN severe pain #12 07/10/25 Unknown Rx
tabs
sennosides 8.6 mg-docusate sodium 1 tab-cap PO BID #60 tabs 07/10/25 Unknown Rx
50 mg tablet (Senokot-S)
valsartan 160 mg tablet 160 mg PO DAILY #30 tabs 07/10/25 Unknown Rx
Review of Systems
-
Hematologic/Lymphatic: Other (All 14 systems reviewed and negative except as stated above in the history of present illness.)
Vitals / Labs / Diagnostic Testing
Vital Signs
Temp Pulse Resp BP Pulse Ox
97.3 F 94 17 138/90 97
07/21/25 07:36 07/21/25 06:00 07/21/25 06:00 07/21/25 06:00 07/21/25 06:00
Lab Data
07/20/25 21:57
07/21/25 06:07
Laboratory Results
07/21/25 07/21/25
00:49 06:07
APTT 24.5 95.1 H
Microbiology
09/28/25 21:58 Nasal Swab Influenza Types A & B (MACY) - Final
Negative for Influenza A & B, NAAT
Negative results must be combined with clinical observations
and patient history.
Nucleic Acid Amplification test (NAAT)performed on the
[employer] platform.
Diagnostic Testing:
Physical Exam
-
HEENT: Normocephalic
Cardiovascular: S1/S2
Respiratory: Clear
GI: Soft and Non Distended
Neurology: Awake and Alert
Skin: Warm
General: Comfortable
Assessment
-
#1. Acute submassive pulmonary embolism.
- RV strain noted on imaging, also elevated troponin.
- Currently on IV heparin infusion, tolerating well, on 2 L supplemental oxygen. Not requiring any pressor therapy.
- Continue heparin drip for now, await echocardiogram for further evaluation of right ventricle. Check lower extremity venous Doppler.
- CT imaging reviewed, large clot burden, RV strain and suspect septal bowing. Will discuss with interventional radiology service if patient might be a candidate for catheter directed therapy. She had right hip hemiarthroplasty 2 weeks ago.
- Suspect provoked event in the setting of recent orthopedic surgery and hospitalization. Needs a minimum of 3 months of anticoagulation as long as age-appropriate cancer screening is unremarkable. Patient has not had a mammogram or colonoscopy in
many years.
- Outpatient follow-up with pulmonary clinic, information added to discharge section
- Hypercoagulability workup unlikely to be helpful at age 80 with a provoked event.
Other medical diagnoses:
- Hypertension
- Hyperlipidemia
- Right hip hemiarthroplasty after femoral neck fracture, 06/2025.
Total time spent on this consultation/encounter _62___ minutes which includes review of history, physical exam, medications, laboratory data, personal review of imaging, extensive review of outpatient records, discussion with care team and
respiratory therapy.
CT Chest 06/2025: 1. 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
2. SEVERE RIGHT HEART STRAIN.
3. Mild subsegmental atelectasis in the lower lobes.
4. Severe calcific atherosclerotic plaque in the thoracic and abdominal aorta.
--- NOTE | 2025-07-21 08:05 | W.PN.HOSP.TC ---
Today's Communication/Plan
-
cont hep gtt
stable for downgrade to tele
2 lidocaine patches for back pain
Diet resumed
Assessment / Plan
Assessment / Plan
Physical Exam
General: No acute distress, appears comfortable at this time
HEENT: NormoCephalic, Moist mucous membranes and Atraumatic
Respiratory: Clear
Cardiac: S1/S2 and Regular Rhythm; No Murmur or Rub
GI: Soft, Non Tender, Non Distended and Normal Bowel Sounds; No Organomegaly
Musculoskeletal: No Clubbing, No Cyanosis, No Edema
Skin: No Rash
Neuro: AO x 3 conversant coherent
Psych: Calm
80-year-old female with past medical history of hypertension and hyperlipidemia who is 2 weeks status post right hip hemiarthroplasty for femoral neck fracture now presents to the emergency department with acute episode of shortness of breath and
lightheadedness and was found to have extensive bilateral PE with saddle embolus and right heart strain on CT scan. She is on room air satting 91%. She is hemodynamically stable. No evidence of cardiac ischemia at this time. She meets criteria
for submassive PE. Case discussed with fireproof door maker and interventional radiologist. No plans for immediate thrombolysis.
PLAN:
Submassive pulmonary embolism -likely provoked status post hip surgery, hemodynamically stable, 2L supplemental oxygen use at rest
Venous Duplex appreciated RLE DVT
-ICU admit, stable for downgrade to Tele
-Heparin drip
-Continue pain control and antiemetics
-ECHO appreciated EF 63% Dilated severely hypokinetic right ventricle.
-Troponin elevation 0.385 since trended down, likely non-ischemic myocardial injury, chest pain free
-Music Store Manager and interventional consult appreciated, with recent rt hip hemiarthroplasty and overall stable clinical progress/presentation, holding off on catheter directed therapies
HTN
-Home Valsartan resumed with holding parameters
-home Amlodipine on hold for now
Back Pain
2Lidocaine patches
Full Code
Medically stable for downgrade to Tele
I spent a total of 55 minutes with the patient or on the floor. More than 50% of this time involved counseling and coordination of care.
Anticipated Discharge: 24 - 48 hours
Subjective/Interval History
-
Date of Service: July 21, 2025
No acute distress, sitting up comfortably in bed. Reports significant improvement in symptoms including SOB. Stable respiratory status on 2L at rest. Reports back pain but otherwise feels well.
Objective Data
-
Labs:
Laboratory Results
07/20/25 07/21/25 07/21/25
21:57 00:49 06:07
WBC 9.1
Hgb 12.4
Hct 36.5 L
Plt Count 404 H
APTT 24.5 95.1 H
Sodium 137 136
Potassium 3.3 L 3.5
Chloride 108 H 107
Carbon Dioxide 23 25
BUN 16 14
Creatinine 0.5 L 0.5 L
Glucose 108 H 124 H
Calcium 9.5 9.4
Total Bilirubin 0.5 0.7
AST 52 H 36
ALT 39 H 33
Alkaline Phosphatase 207 H 166 H
07/21/25
12:30
WBC
Hgb
Hct
Plt Count
APTT Pending
Sodium
Potassium
Chloride
Carbon Dioxide
BUN
Creatinine
Glucose
Calcium
Total Bilirubin
AST
ALT
Alkaline Phosphatase
Vital Signs:
Vital Signs
Temp Pulse Resp BP Pulse Ox
97.3 F 94 17 138/90 97
07/21/25 07:36 07/21/25 06:00 07/21/25 06:00 07/21/25 06:00 07/21/25 06:00
I&O
07/20/25 07/21/25 07/22/25
06:59 06:59 06:59
Intake Total / 71
Output Total 500 / 500
Balance -429 / -429
[2025-07-21] MEDS: DIOVAN 160 MG PO (09:11)
[2025-07-21] MEDS: COLACE 100 MG PO ×2 (09:11→20:13)
--- NOTE | 2025-07-21 10:24 | CM ---
Patient was at for R hip hemiarthroplasty on 07/07/25 and discharged to [facility] on 07/10/25. She was readmitted to from [facility] on 07/21/25 for massive PE. Prior to the hip repair she lived alone in a 1 story home with no basement and
1 step to enter. She was independent in ADL's and ambulation and drove. She did not use any DME but in the home was a RW, rollator, SPC, Quad cane and transport chair. No in-home services. Does have HC-POA. No VA benefits. No psychiatric
hospitalizations. PCP is Dr. Corie Wyman with [facility]. Pharmacy is [facility] in [place]. Discharge POC: Return to [facility] to resume STR. Referral forwarded. No auth required.
[2025-07-21] MEDS: LIDOCAINE 4% PATCH 2 PATCH TOPICAL (10:53)
[2025-07-21 13:09] LABS: APTT 108.2 Sec (23.4-35.0); Troponin I 0.253 ng/ml
--- NOTE | 2025-07-21 18:06 | PTCARENOTE ---
93-96% on room air. Pt denies chest pain or SOB. Heparin gtt per protocol.
[2025-07-21] MEDS: REMOVE LIDOCAINE PATCH 2 PATCH REMOVE (20:13)
[2025-07-21] MEDS: TYLENOL 650 MG PO (21:38)
[2025-07-21] MEDS: LIPITOR 10 MG PO (21:38)
[2025-07-22] VITALS (9 sets, daily range): BP systolic 117–179; BP diastolic 74–106; BMI 23.7
[2025-07-22 06:25] LABS: APTT 72.7 Sec (23.4-35.0)
[2025-07-22 06:36] LABS: Hematocrit 28.8 % (37.0-47.0); Hemoglobin 10.0 g/dL (12.0-16.0); Mean Corp Hgb Conc. 34.7 g/dL (33.0-37.0); Mean Corpuscular Volume 89.4 fL (81.0-99.0); Platelet Count 315 10^3/uL (130-400); Red Cell Dist. Width 13.4 % (11.5-14.5)
[2025-07-22 06:39] LABS: Blood Urea Nitrogen 13 mg/dl (7-17); Calcium 9.3 mg/dl (8.4-10.2); Carbon Dioxide 26 mmol/L (22-30); Chloride 107 mmol/L (98-107); Estimated Creatinine Clearance 65 ml/min; Glucose 105 mg/dl (70-99); Magnesium 1.7 mg/dl (1.6-2.3); Potassium 3.7 mmol/L (3.5-5.1); Sodium 136 mmol/L (135-145); eGFR > 60.00
--- NOTE | 2025-07-22 07:40 | W.PN.HOSP.TC ---
Today's Communication/Plan
-
remains stable for downgrade to Tele
resume home Amlodipine with holding parameters
cont hep gtt as per pul, [facility] to start 07/23 tomorrow Wed AM
Hep gtt to be dc when starting Eliquis
Assessment / Plan
Assessment / Plan
Physical Exam
General: No acute distress, appears comfortable at this time
HEENT: NormoCephalic, Moist mucous membranes and Atraumatic
Respiratory: Clear, stable respiratory status on room air
Cardiac: S1/S2 and Regular Rhythm; No Murmur or Rub
GI: Soft, Non Tender, Non Distended and Normal Bowel Sounds; No Organomegaly
Musculoskeletal: No Clubbing, No Cyanosis, No Edema
Skin: No Rash
Neuro: AO x 3 conversant coherent
Psych: Calm
80F HTN HLD recent rt hip hemiarthroplasty for femoral neck fracture p/w acute episode of shortness of breath and lightheadedness and was found to have extensive bilateral PE with saddle embolus and right heart strain on CT scan. She is on room air
satting 91%. She is hemodynamically stable. No evidence of cardiac ischemia at this time. She meets criteria for submassive PE. Case discussed with atomic welder and interventional radiologist. No plans for immediate thrombolysis.
PLAN:
Submassive pulmonary embolism -likely provoked status post hip surgery, hemodynamically stable, 2L supplemental oxygen use at rest
Venous Duplex appreciated RLE DVT
-ICU admit, downgraded to Tele
-Heparin gtt transition to Eliquis 07/23 as per Pulm
-Continue pain control and antiemetics
-ECHO appreciated EF 63% Dilated severely hypokinetic right ventricle.
-Troponin elevation 0.385 since trended down, likely non-ischemic myocardial injury vs Acute PE with acute cor pulmonale , chest pain free
-Head Lineman and interventional consult appreciated, with recent rt hip hemiarthroplasty and overall stable clinical progress/presentation, held off on catheter directed therapies
HTN
-Home Valsartan and Amlodipine resumed with holding parameters
Back Pain
2 Lidocaine patches
Recent Rt Hip Hemiarthroplasty
-requested Orthopedic follow up, due for kennedy removal.
Full Code
Medically stable for downgrade to Tele
Discussed with patient and patient's son Justin
I spent a total of 45 minutes with the patient or on the floor. More than 50% of this time involved counseling and coordination of care.
Anticipated Discharge: 24 - 48 hours
Subjective/Interval History
-
Date of Service: July 22, 2025
No acute distress, overall reports feeling well, stable respiratory status on room air.
Objective Data
-
Labs:
Laboratory Results
07/22/25 07/22/25
05:49 13:00
WBC 5.6
Hgb 10.0 L
Hct 28.8 L
Plt Count 315 D
APTT 72.7 H Pending
Sodium 136
Potassium 3.7
Chloride 107
Carbon Dioxide 26
BUN 13
Creatinine 0.5 L
Glucose 105 H
Calcium 9.3
Vital Signs:
Vital Signs
Temp Pulse Resp BP Pulse Ox
97.3 F 91 20 117/77 95
07/22/25 03:15 07/22/25 06:00 07/22/25 06:00 07/22/25 04:00 07/21/25 20:00
I&O
07/21/25 07/22/25 07/23/25
06:59 06:59 06:59
Intake Total 71 / 71 973 / 973
Output Total 500 / 500 650 / 650
Balance -429 / -429 323 / 323
[2025-07-22] MEDS: LIDOCAINE 4% PATCH TOPICAL (08:45)
[2025-07-22] MEDS: MAGNESIUM SULFATE 50 IV (08:45)
[2025-07-22] MEDS: COLACE 100 MG PO (08:45)
[2025-07-22] MEDS: DIOVAN 160 MG PO (08:45)
[2025-07-22] MEDS: NORVASC 2.5 MG PO (09:42)
--- NOTE | 2025-07-22 10:28 | PTCARENOTE ---
Pt rec'd from night RN 0700. Heparin gtt infusing at 1100 units/hr, PTT result noted and communicated to Dr. Chavez. Per instructions, no bolus needed, just increase gtt to 1200 units/hr. Pt is AOx3, room air sat 94%. Pt assisted to c x1 standby
assist, voided and returned to bed. Pt ordered breakfast, discussed plan of care. Orders reviewed, questions answered. Right hip incision with kennedy in place, approximated. Ortho consult placed by Dr. Chavez for staple removal. Pt with large liquid
brown BM, incontinent due to urgency at 10:15. Pt cleaned and repositioned. Mag rider was ordered and administered. Left PIV positional, redressed with improved patentcy. Call fonseca in hand.
--- NOTE | 2025-07-22 12:16 | W.PN.PUL3 ---
Today's Communication / Plan
-
- Continue heparin today, can transition to Eliquis 10 mg starting 07/23/2025
Assessment
-
#1. Acute submassive pulmonary embolism with RLE DVT
- RV strain noted on imaging, also elevated troponin.
- Currently on IV heparin infusion, tolerating well, on RA. Not requiring any pressor therapy.
- Continue heparin drip for now, Echocardiogram suggestive of significantly dilated RV. DVT noted on lower extremity duplex.
- CT imaging reviewed, large clot burden, RV strain and suspect septal bowing. 07/21 Discussed with interventional radiology service if patient might be a candidate for catheter directed therapy. She had right hip hemiarthroplasty 2 weeks ago. In
view of hemodynamic stability, recommendation was to continue heparin.
- Suspect provoked event in the setting of recent orthopedic surgery and hospitalization. Needs a minimum of 3 months of anticoagulation as long as age-appropriate cancer screening is unremarkable. Patient has not had a mammogram or colonoscopy in
many years.
- Outpatient follow-up with pulmonary clinic, information added to discharge section
- Hypercoagulability workup unlikely to be helpful at age 80 with a provoked event.
Other medical diagnoses:
- Hypertension
- Hyperlipidemia
- Right hip hemiarthroplasty after femoral neck fracture, 06/2025.
Total time spent on this consultation/encounter _42___ minutes which includes review of history, physical exam, medications, laboratory data, personal review of imaging, extensive review of outpatient records, discussion with care team and
respiratory therapy.
CT Chest 06/2025: 1. 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
2. SEVERE RIGHT HEART STRAIN.
3. Mild subsegmental atelectasis in the lower lobes.
4. Severe calcific atherosclerotic plaque in the thoracic and abdominal aorta.
Subjective Data
-
Date of Service:
Date of Service: July 22, 2025
Subjective:
Patient comfortably lying in bed in no acute distress.
Review of Systems
Genitourinary: Other (All 14 systems reviewed and negative except as stated above in the history of present illness.)
Objective Data
Data Reviewed
Vital Signs / I&O / Oxygen:
Vital Signs
Temp Pulse Resp BP Pulse Ox
98.7 F 87 14 141/79 94
07/22/25 11:25 07/22/25 12:00 07/22/25 10:00 07/22/25 12:00 07/22/25 10:53
Intake and Output
07/21/25 07/22/25 07/23/25
06:59 06:59 06:59
Intake Total 71 / 71 973 / 973 1130 / 1130
Output Total 500 / 500 650 / 650 100 / 100
Balance -429 / -429 323 / 323 1030 / 1030
SaO2 94
Nasal Cannula flow liters per 2
minute
Physical Exam
General: Comfortable
HEENT: Normocephalic
Cardiovascular: S1-S2
Respiratory: Clear and Non-Labored Respirations
GI: Soft and Non Distended
Neurology: Awake and Alert
Skin: Warm
Labs/Micro/Reports
Lab Data
07/22/25 05:49
07/22/25 05:49
Laboratory Results
07/21/25 07/22/25
12:32 05:49
APTT 108.2 H 72.7 H
Microbiology
07/20/25 21:58 Nasal Swab Influenza Types A & B (MACY) - Final
Negative for Influenza A & B, NAAT
Negative results must be combined with clinical observations
and patient history.
Nucleic Acid Amplification test (NAAT)performed on the
[employer] platform.
--- NOTE | 2025-07-22 12:32 | PTCARENOTE ---
[place] removed by ortho at this time. Pt is assigned new tele bed, 317-1, report will be given pending receiving RN availability. Pt updated.
[2025-07-22 13:10] LABS: APTT 82.7 Sec (23.4-35.0)
--- NOTE | 2025-07-22 13:17 | PTCARENOTE ---
Report was given to receiving KARAN Montelongo. PTT result from 13:00 therapeutic, see worklist. Awaiting transport to new room at this time.
--- NOTE | 2025-07-22 13:51 | CM ---
Transferred to Room 317-1. IV/heparin, transition to Eliquis on 07/23/25. Discharge POC: SNF. Preference return to [facility]. Accepted pending bed availability.
--- NOTE | 2025-07-22 14:43 | PN.CDI ---
CDI
- -
CDI:
Physician Documentation Request
Admit Date: 07/21/25 02:01
Dear Doctor Scott,
Clinical Indicators:
Patient admitted with submassive pulmonary embolism.
07/21 Echo Report, 'Dilated severely hypokinetic right ventricle....The inferior vena cava appears dilated.'
07/21 Pulmonary consult, 'Acute submassive pulmonary embolism....elevated troponin...CT imaging reviewed, large clot burden, RV strain and suspect septal bowing.'
HR trend: ST 90-110s
Troponin trend:
07/21/25 07/21/25
06:07 12:32
Troponin I 0.385 H* 0.253 H* D
Based on the above, could you clarify in the progress notes, the appropriate diagnosis, if significant, that supports the above abnormalities and additional evaluation, monitoring and/or treatment rendered:
Acute PE with acute cor pulmonale
Acute PE only
Other, please specify
Use of terms such as suspected, likely, concern for, or probable (associated with a specific diagnosis that is being evaluated, monitored, or treated as if it exists) are acceptable and can be coded in the inpatient setting, when documented at the
time of discharge.
Thank you,
JESS Antoine RN
CDI Specialist
available via tiger text
Please use your independent medical judgment in providing your response.
--- NOTE | 2025-07-22 14:54 | PTCARENOTE ---
Pt received from ICU. Report received from Desa. Pt x1 assist to stand and pivot from wheelchair to bed on arrival. AAOx3. BP elevated initially but came down once pt settled in room. Pt assigned tele NSR/sinus tach on monitor HR 100-110. Heparin
gtt running at 12mL/hr on arrival. ptt 82.7 -> no change necessary at this time. Lunch in room, pt has no needs at this time. Call fonseca is within reach. POC ongoing.
[2025-07-22 19:18] LABS: APTT 79.7 Sec (23.4-35.0)
[2025-07-22] MEDS: COLACE PO (19:48)
[2025-07-22] MEDS: REMOVE LIDOCAINE PATCH REMOVE (19:50)
[2025-07-22] MEDS: LIPITOR 10 MG PO (21:03)
[2025-07-22] MEDS: HEPARIN 25000 UNITS/250 ML IV (22:25)
[2025-07-23] VITALS (7 sets, daily range): BP systolic 120–163; BP diastolic 64–98; PULSE 95; O2SAT 93
[2025-07-23 07:39] LABS: Hematocrit 30.1 % (37.0-47.0); Hemoglobin 10.5 g/dL (12.0-16.0); Mean Corp Hgb Conc. 34.9 g/dL (33.0-37.0); Mean Corpuscular Volume 90.1 fL (81.0-99.0); Platelet Count 344 10^3/uL (130-400); Red Cell Dist. Width 13.2 % (11.5-14.5)
[2025-07-23 08:09] LABS: Blood Urea Nitrogen 10 mg/dl (7-17); Calcium 9.4 mg/dl (8.4-10.2); Carbon Dioxide 25 mmol/L (22-30); Chloride 105 mmol/L (98-107); Estimated Creatinine Clearance 65 ml/min; Glucose 108 mg/dl (70-99); Magnesium 1.9 mg/dl (1.6-2.3); Potassium 3.5 mmol/L (3.5-5.1); Sodium 135 mmol/L (135-145); eGFR > 60.00
[2025-07-23] MEDS: NORVASC 2.5 MG PO (08:09)
[2025-07-23] MEDS: ELIQUIS 10 MG PO ×2 (08:09→21:52)
[2025-07-23] MEDS: COLACE 100 MG PO (08:09)
[2025-07-23] MEDS: TYLENOL 650 MG PO ×2 (08:13→21:53)
[2025-07-23] MEDS: DIOVAN 160 MG PO (08:15)
[2025-07-23] MEDS: LIDOCAINE 4% PATCH 2 PATCH TOPICAL (08:16)
--- NOTE | 2025-07-23 09:46 | CM ---
Patient seen at bedside
IMM explained & signed - in chart
[facility] accepted
Patient stated son holding bed-LM in careport to confirm
PLAN: SNF, when stable
--- NOTE | 2025-07-23 10:23 | W.PN.PUL3 ---
Today's Communication / Plan
-
Transition to oral anticoagulants
Increase activity as able
Outpatient pulmonary follow-up
Assessment
-
#1. Acute submassive pulmonary embolism with RLE DVT
- RV strain noted on imaging, also elevated troponin.
-Hemodynamically stable. No significant tachycardia or hypoxemic.
- Heparin drip overnight-transition to oral anticoagulants today 07/23/2025.
- Continue heparin drip for now, Echocardiogram suggestive of significantly dilated RV. DVT noted on lower extremity duplex.
- CT imaging reviewed, large clot burden, RV strain and suspect septal bowing. 07/21 Discussed with interventional radiology service if patient might be a candidate for catheter directed therapy. She had right hip hemiarthroplasty 2 weeks ago. In
view of hemodynamic stability, recommendation was to continue heparin.
- Suspect provoked event in the setting of recent orthopedic surgery and hospitalization. Needs a minimum of 3 months of anticoagulation as long as age-appropriate cancer screening is unremarkable. Patient has not had a mammogram or colonoscopy in
many years.
- Outpatient follow-up with pulmonary clinic, information added to discharge section
- Hypercoagulability workup unlikely to be helpful at age 80 with a provoked event.
Other medical diagnoses:
- Hypertension
- Hyperlipidemia
- Right hip hemiarthroplasty after femoral neck fracture, 06/2025.
-
No additional pulmonary recommendations
Information left discharge for follow-up in the outpatient setting.
CT Chest 06/2025: 1. 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
2. SEVERE RIGHT HEART STRAIN.
3. Mild subsegmental atelectasis in the lower lobes.
4. Severe calcific atherosclerotic plaque in the thoracic and abdominal aorta.
Subjective Data
-
Date of Service:
Date of Service: July 23, 2025
Chief Complaint: Pulmonary Follow Up (Acute pulmonary embolism-provoked)
Review of Systems
Cardiopulmonary: Dyspnea (none at rest) and Orthopnea (n)
GI: Abdominal Pain (n) and Nausea (n)
Objective Data
Data Reviewed
Vital Signs / I&O / Oxygen:
Vital Signs
Temp Pulse Resp BP Pulse Ox
98.6 F 91 16 143/90 96
07/23/25 07:00 07/23/25 08:15 07/23/25 07:00 07/23/25 08:15 07/23/25 07:00
Intake and Output
07/22/25 07/23/25 07/24/25
06:59 06:59 06:59
Intake Total 973 / 973 1202 / 1202
Output Total 650 / 650 100 / 100
Balance 323 / 323 1102 / 1102
SaO2 96
Nasal Cannula flow liters per 2
minute
Physical Exam
General: Comfortable
HEENT: Normocephalic
Cardiovascular: S1-S2
Respiratory: Clear and Non-Labored Respirations
GI: Soft and Non Distended
Neurology: Awake and Alert
Skin: Warm
Labs/Micro/Reports
Lab Data
07/23/25 06:59
07/23/25 06:59
Laboratory Results
07/22/25 07/22/25
12:50 18:53
APTT 82.7 H 79.7 H
Microbiology
07/20/25 21:58 Nasal Swab Influenza Types A & B (MACY) - Final
Negative for Influenza A & B, NAAT
Negative results must be combined with clinical observations
and patient history.
Nucleic Acid Amplification test (NAAT)performed on the
[employer] platform.
[2025-07-23] MEDS: REMOVE LIDOCAINE PATCH 2 PATCH REMOVE (21:50)
[2025-07-23] MEDS: COLACE PO (21:50)
[2025-07-23] MEDS: LIPITOR 10 MG PO (21:51)
[2025-07-24] MEDS: TYLENOL 650 MG PO (06:17)
--- NOTE | 2025-07-24 06:22 | W.PN.HOSP.TC ---
Today's Communication/Plan
-
monitor
Likely discharge to SNF rehab tomorrow 07/24 if remains medically stable
Assessment / Plan
Assessment / Plan
Physical Exam
General: No acute distress, appears comfortable at this time
HEENT: NormoCephalic, Moist mucous membranes and Atraumatic
Respiratory: Clear, stable respiratory status on room air
Cardiac: S1/S2 and Regular Rhythm; No Murmur or Rub
GI: Soft, Non Tender, Non Distended and Normal Bowel Sounds; No Organomegaly
Musculoskeletal: No Clubbing, No Cyanosis, No Edema
Skin: No Rash
Neuro: AO x 3 conversant coherent
Psych: Calm
80F HTN HLD recent rt hip hemiarthroplasty for femoral neck fracture p/w acute episode of shortness of breath and lightheadedness and was found to have extensive bilateral PE with saddle embolus and right heart strain on CT scan. She is on room air
satting 91%. She is hemodynamically stable. No evidence of cardiac ischemia at this time. She meets criteria for submassive PE. Case discussed with ui designer and interventional radiologist. No plans for immediate thrombolysis.
PLAN:
Submassive pulmonary embolism -likely provoked status post hip surgery, hemodynamically stable, 2L supplemental oxygen use at rest
Venous Duplex appreciated RLE DVT
-ICU admit, downgraded to Tele
-Heparin gtt transitioned to Eliquis 07/23 as per Pulm
-Continue pain control and antiemetics
-ECHO appreciated EF 63% Dilated severely hypokinetic right ventricle.
-Troponin elevation 0.385 since trended down, likely non-ischemic myocardial injury vs Acute PE with acute cor pulmonale , chest pain free
-Freight Broker and interventional consult appreciated, with recent rt hip hemiarthroplasty and overall stable clinical progress/presentation, held off on catheter directed therapies
HTN
-Home Valsartan and Amlodipine resumed with holding parameters
Back Pain
2 Lidocaine patches
Recent Rt Hip Hemiarthroplasty
kennedy removed
Full Code
I spent a total of 45 minutes with the patient or on the floor. More than 50% of this time involved counseling and coordination of care.
Anticipated Discharge: Within 24 hours
Subjective/Interval History
-
Date of Service: July 23, 2025
Late entry, seen and examined at bedside above date. No acute distress, overall reports feeling well. Denies new acute issues at this time
Objective Data
-
Labs:
Laboratory Results
07/24/25
06:00
WBC Pending
Hgb Pending
Hct Pending
Plt Count Pending
Sodium Pending
Potassium Pending
Chloride Pending
Carbon Dioxide Pending
BUN Pending
Creatinine Pending
Glucose Pending
Calcium Pending
Vital Signs:
Vital Signs
Temp Pulse Resp BP Pulse Ox
98 F 94 18 142/82 93
07/23/25 23:00 07/23/25 23:00 07/23/25 23:00 07/23/25 23:00 07/23/25 23:00
I&O
07/22/25 07/23/25 07/24/25
06:59 06:59 06:59
Intake Total 973 / 973 1202 / 1202 840 / 840
Output Total 650 / 650 100 / 100
Balance 323 / 323 1102 / 1102 840 / 840
[2025-07-24 07:23] VITALS: BP 127/78
--- NOTE | 2025-07-24 07:26 | W.PN.HOSP.TC ---
Today's Communication/Plan
-
discharge
Assessment / Plan
Assessment / Plan
Physical Exam
General: No acute distress, appears comfortable at this time
HEENT: NormoCephalic, Moist mucous membranes and Atraumatic
Respiratory: Clear, stable respiratory status on room air
Cardiac: S1/S2 and Regular Rhythm; No Murmur or Rub
GI: Soft, Non Tender, Non Distended and Normal Bowel Sounds; No Organomegaly
Musculoskeletal: No Clubbing, No Cyanosis, No Edema
Skin: No Rash
Neuro: AO x 3 conversant coherent
Psych: Calm
80F HTN HLD recent rt hip hemiarthroplasty for femoral neck fracture p/w acute episode of shortness of breath and lightheadedness and was found to have extensive bilateral PE with saddle embolus and right heart strain on CT scan. She is on room air
satting 91%. She is hemodynamically stable. No evidence of cardiac ischemia at this time. She meets criteria for submassive PE. Case discussed with pathology specialist and interventional radiologist. No plans for immediate thrombolysis. Patient since
improved transitioned to DOAC tolerating well.
PLAN:
Submassive pulmonary embolism -likely provoked status post hip surgery, hemodynamically stable, 2L supplemental oxygen use at rest
Venous Duplex appreciated RLE DVT
-ICU admit, downgraded to Tele
-Heparin gtt transitioned to Eliquis 07/23 as per Pulm
-Continue pain control and antiemetics
-ECHO appreciated EF 63% Dilated severely hypokinetic right ventricle.
-Troponin elevation 0.385 since trended down, likely non-ischemic myocardial injury vs Acute PE with acute cor pulmonale , chest pain free
-Life Sciences Teacher and interventional consult appreciated, with recent rt hip hemiarthroplasty and overall stable clinical progress/presentation, held off on catheter directed therapies
-Patient since significantly improved, symptoms resolved.
HTN
-Home Valsartan and Amlodipine resumed with holding parameters
Back Pain
2 Lidocaine patches
Recent Rt Hip Hemiarthroplasty
kennedy removed
Full Code
Medically stable for discharge SNF rehab with outpatient follow up recommendations.
Discussed with patient and patient's son Justin
Total Time Preparing Discharge __40 minutes including examination of the patient, summary of the hospital stay, instructions for continuing care to all relevant caregivers; and preparation of discharge records, prescriptions, and referral
forms if necessary.
Anticipated Discharge: Today
Subjective/Interval History
-
Date of Service: July 24, 2025
no acute distress, overall reports feeling well. Denies new acute issues. Looking forward to return to rehab.
Objective Data
-
Labs:
Laboratory Results
07/24/25
07:09
WBC Pending
Hgb Pending
Hct Pending
Plt Count Pending
Sodium Pending
Potassium Pending
Chloride Pending
Carbon Dioxide Pending
BUN Pending
Creatinine Pending
Glucose Pending
Calcium Pending
Vital Signs:
Vital Signs
Temp Pulse Resp BP Pulse Ox
98.0 F 87 17 127/78 98
07/24/25 07:23 07/24/25 07:23 07/24/25 07:23 07/24/25 07:23 07/24/25 07:23
I&O
07/23/25 07/24/25 07/25/25
06:59 06:59 06:59
Intake Total 1202 / 1202 840 / 840
Output Total 100 / 100
Balance 1102 / 1102 840 / 840
[2025-07-24 07:40] LABS: Hematocrit 30.4 % (37.0-47.0); Hemoglobin 10.3 g/dL (12.0-16.0); Mean Corp Hgb Conc. 33.9 g/dL (33.0-37.0); Mean Corpuscular Volume 89.7 fL (81.0-99.0); Platelet Count 322 10^3/uL (130-400); Red Cell Dist. Width 13.2 % (11.5-14.5)
[2025-07-24] MEDS: LIDOCAINE 4% PATCH 2 PATCH TOPICAL (07:48)
[2025-07-24] MEDS: DIOVAN 160 MG PO (07:49)
[2025-07-24] MEDS: ELIQUIS 10 MG PO (07:49)
[2025-07-24] MEDS: NORVASC 2.5 MG PO (07:50)
[2025-07-24] MEDS: COLACE 100 MG PO (07:50)
[2025-07-24 08:03] LABS: Blood Urea Nitrogen 11 mg/dl (7-17); Calcium 9.3 mg/dl (8.4-10.2); Carbon Dioxide 26 mmol/L (22-30); Chloride 106 mmol/L (98-107); Estimated Creatinine Clearance 65 ml/min; Glucose 109 mg/dl (70-99); Magnesium 1.8 mg/dl (1.6-2.3); Potassium 3.7 mmol/L (3.5-5.1); Sodium 135 mmol/L (135-145); eGFR > 60.00
--- NOTE | 2025-07-24 09:01 | CM ---
per hospitalist patient discharge today
Patient to return to [facility]
spoke with Marsha yesterday-bed hold
covid test ordered
spoke to son regarding wheelchair van and cost, agreeable
IMM explained & signed in chart.
PLAN: [facility]
Report #: [phone]
Fax #: [phone]
wheelchair van form on chart
[2025-07-24 10:07] LABS: COVID-19 Antigen Negative (Negative)
--- NOTE | 2025-07-24 10:40 | W.PN.PUL3 ---
Today's Communication / Plan
-
Continue oral anticoagulation
Outpatient pulmonary follow-up
Increase activity as able
Discharge planning
Sign off
Assessment
-
#1. Acute submassive pulmonary embolism with RLE DVT
- RV strain noted on imaging, also elevated troponin.
-Hemodynamically stable. No significant tachycardia or significantly hypoxemic.
- Heparin drip overnight-transition to oral anticoagulants 07/23/2025.
-Echocardiogram suggestive of significantly dilated RV. DVT noted on lower extremity duplex.
-
- CT imaging--> large clot burden, RV strain and suspect septal bowing.
07/21 Discussed with interventional radiology service no indication for catheter lysis. Patient has remained hemodynamically stable.
-
- Suspect provoked event in the setting of recent orthopedic surgery and hospitalization.
Needs a minimum of 3 months of anticoagulation as long as age-appropriate cancer screening is unremarkable.
Patient has not had a mammogram or colonoscopy in many years.
- Outpatient follow-up with pulmonary clinic, information added to discharge section
- Hypercoagulability workup unlikely to be helpful at age 80 with a provoked event.
Other medical diagnoses:
- Hypertension
- Hyperlipidemia
- Right hip hemiarthroplasty after femoral neck fracture, 06/2025.
-
No additional pulmonary recommendations
Information left discharge for follow-up in the outpatient setting. Discharge planning in the next 24 hours
[address] Chest 06/2025: 1. 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
2. SEVERE RIGHT HEART STRAIN.
3. Mild subsegmental atelectasis in the lower lobes.
4. Severe calcific atherosclerotic plaque in the thoracic and abdominal aorta.
Subjective Data
-
Date of Service:
Date of Service: July 24, 2025
Chief Complaint: Pulmonary Follow Up (Acute pulmonary embolism-provoked)
Subjective:
No new pulmonary complaints
Tolerating anticoagulation without bleeding
Denies chest pain or lightheadedness
Review of Systems
Cardiopulmonary: Dyspnea (Improved)
GI: Nausea (n)
Neuro: Headache (n)
Objective Data
Data Reviewed
Vital Signs / I&O / Oxygen:
Vital Signs
Temp Pulse Resp BP Pulse Ox
98.0 F 87 17 127/78 98
07/24/25 07:23 07/24/25 07:50 07/24/25 07:23 07/24/25 07:50 07/24/25 07:23
Intake and Output
07/23/25 07/24/25 07/25/25
06:59 06:59 06:59
Intake Total 1202 / 1202 840 / 840
Output Total 100 / 100
Balance 1102 / 1102 840 / 840
SaO2 98
Nasal Cannula flow liters per 2
minute
Physical Exam
General: Comfortable
HEENT: Normocephalic
Cardiovascular: S1-S2
Respiratory: Clear and Non-Labored Respirations
GI: Soft and Non Distended
Neurology: Awake and Alert
Skin: Warm
Labs/Micro/Reports
Lab Data
07/24/25 07:09
07/24/25 07:09
[2025-07-24 10:50] VITALS: BP 154/79
--- NOTE | 2025-07-24 11:53 | W.DCSUMMARY ---
Discharge Summary
Discharge Data
Date of Admission: 07/21/25
Date of Discharge: 07/24/25
-
Pending Results: No
Discharge Plan
-
Patient Disposition: Jail/SNF
Discharge Diagnosis/Procedures: Submassive pulmonary embolism and Right Lower Extremity Deep Vein Thrombosis likely provoked recent hip surgery
Hypertension
Condition: Fair
Diet: Regular
Activity: With assistance, As tolerated and With Walker
Driving Restrictions: Not until seen by your Dr
Bathing Restrictions: None
Blood Work: Repeat CBC and BMP with primary care provider in 1 week of discharge
Other Services: PT and OT
Activity Restrictions/Additional Instructions:
Follow up with primary care provider in 1 week of discharge, orthopedic in 2 weeks of discharge, Hematology in 2-4 weeks of discharge, and Pulmonology in 1-2 months of discharge.
Aspirin discontinued in favor of Eliquis for treatment pulmonary embolism and right lower extremity deep vein thrombosis:
Continue with Eliquis loading dose 2 tabs (10 mg) twice a day from 07/23/25 thru 07/29/25
then reduce to maintenance dose 1 tab (5 mg) twice a day from then on.
Lidocaine prescribed as needed for back pain.
Oxycodone discontinued, has not required during this hospitalization.
Please take medications as prescribed/recommended and follow up with primary care provider and/or other healthcare provider involved in care for refills and/or further adjustment to medication regimen as necessary.
Referrals:
Waldemar Garcia, DO [Active, Hematology / Oncology] - in two to four weeks
Rosalinda Cho MD [Active, Pulmonary Medicine] - in one to two months
Logan Mukherjee MD [Active, Orthopedics] - in two weeks
UNKNOWN - PT DOES,NOT KNOW [Family Provider]
Prescriptions:
New
Eliquis 5 mg tablet
5 mg PO DIRECTED Qty: 90 0RF
Rx Instructions:
2 tabs (10 mg) twice a day from 07/23/25 thru 07/29/25
then 1 tab (5 mg) twice a day then on.
lidocaine 4 % Adhesive Patch,Medicated
2 patch topical DAILY PRN (Reason: back pain) Qty: 15 0RF
Continued
amlodipine 2.5 mg tablet
2.5 mg PO DAILY
simvastatin 20 mg tablet
20 mg PO HS
Vitamin D3
2,000 cap PO BID
valsartan 160 mg Tablet
160 mg PO DAILY Qty: 30 0RF
cyanocobalamin (vitamin B-12) [Vitamin B-12] 500 mcg Tablet
1,000 mcg PO DAILY Qty: 30 0RF
acetaminophen [Tylenol] 325 mg tablet
650 mg PO Q4H PRN (Reason: Pain) Qty: 180 0RF
Discontinued
aspirin 325 mg Tablet
325 mg PO DAILY Qty: 24 0RF
oxycodone 5 mg Tablet
2.5 mg PO Q6HPRN PRN (Reason: moderate pain) Qty: 6 0RF
oxycodone 5 mg Tablet
5 mg PO QIDPRN PRN (Reason: severe pain) Qty: 12 0RF
sennosides-docusate sodium [Senokot-S] 8.6-50 mg tablet
1 tab-cap PO BID Qty: 60 0RF
Rx Instructions:
Hold if diarrhea or off opiate pain medications
Discharge Orders:
Discharge Patient (As Directed); Ordered 07/24/25
Ordered By: Rosa Isela Chavez
Discharge Date and Time
Print Language: GREENLANDIC
--- NOTE | 2025-07-24 14:27 | PTCARENOTE ---
[facility] called for report. [facility] RN had no further questions. ETA wheelchair transport 1500.
[2025-07-24 14:54] VITALS: BP 138/74
== END 2025-07-24 15:14 | DRG 299 ==
LOC: 3 WEST ACU 02:01
PROVIDERS: Emergency Medicine; Nurse Practitioner Family; ADMITTING PHYSICIAN Internal Medicine; ATTENDING PHYSICIAN Internal Medicine; EMERGENCY PHYSICIAN Student in an Organized Health Care Education/Training Program; OTHER PHYSICIAN Internal Medicine
DX: T81.718A Complication of other artery following a procedure, not elsewhere classified, initial encounter (principal); I26.02 Saddle embolus of pulmonary artery with acute cor pulmonale; I82.451 Acute embolism and thrombosis of right peroneal vein; I82.441 Acute embolism and thrombosis of right tibial vein; J98.11 Atelectasis; I5A Non-ischemic myocardial injury (non-traumatic); T81.72XA Complication of vein following a procedure, not elsewhere classified, initial encounter; I10 Essential (primary) hypertension; E78.00 Pure hypercholesterolemia, unspecified; Y83.4 Other reconstructive surgery as the cause of abnormal reaction of the patient, or of later complication, without mention of misadventure at the time of the procedure; M54.9 Dorsalgia, unspecified; Z11.52 Encounter for screening for COVID-19; Z96.641 Presence of right artificial hip joint; Z96.651 Presence of right artificial knee joint; Z79.01 Long term (current) use of anticoagulants; Z79.82 Long term (current) use of aspirin; Z79.899 Other long term (current) drug therapy
CPT/HCPCS: 71046; 71275; 80048; 80053; 80076; 83735; 84100; 84484; 85025; 85027; 85730; 87502; 87811; 93005; 93306; 93970; 97116; 97162; 97166; 97535; 99291; Q9967